=== PATIENT | male | born 1950 | race Caucasian/White ===

== ENCOUNTER → 2018-04-01 08:58 | Outpatient (CLI) | payer OTHER, SELFPAY ==
[2018-04-03 13:45] LABS: PSA Free % 25 % (calc) (> 25); PSA, Total 5.5 ng/mL (< 4.1)
== END ==
PROVIDERS: Family Provider Family Medicine; PCP Family Medicine; Visit Provider Family Medicine
DX: N40.0 Benign prostatic hyperplasia without lower urinary tract symptoms (principal)
CPT/HCPCS: 36415; 84153; 84154

== ENCOUNTER → 2018-09-24 13:31 | Outpatient (CLI) | payer OTHER, SELFPAY ==
[2018-09-24 13:53] LABS: Add Manual Diff / Slide Review NO; Basophils Percent Auto 0.9 % (0-2); Eosinophils Percent Auto 7.1 % (2-4); Hematocrit 42.8 % (41-53); Hemoglobin 14.2 g/dL (13.5-17.5); Lymphocytes Percent Auto 35.3 % (25-40); Mean Corpuscular HGB Conc 33.2 % (30-36); Mean Corpuscular Hemoglobin 27.9 PG (26-34); Mean Corpuscular Volume 84.1 fL (80-100); Monocytes Percent Auto 7.1 % (3-14); Neutrophils Absolute Auto 1800 /uL (1500-7000); Neutrophils Percent Auto 49.6 % (50-75); Platelet Count 127 X10^3/uL (150-400); Red Blood Cell Count 5.09 X10^6/uL (4.5-5.9); Red Cell Distribution Width 14.2 % (11.6-14.8); White Blood Cell Count 3.6 X10^3/uL (4.5-11.0)
[2018-09-24 15:02] LABS: Alanine Aminotransferase 31 IU/L (21-72); Albumin Globulin Ratio 1.7 (1.0-2.8); Alkaline Phosphatase 94 U/L (38-126); Aspartate Aminotransferase 19 IU/L (17-59); BUN Creatinine Ratio 27.5 (6-22); Bilirubin Total 0.3 mg/dL (0.2-1.3); Blood Urea Nitrogen 22 mg/dL (9-20); Calcium 9.5 mg/dL (8.4-10.2); Carbon Dioxide 24 mmol/L (22-32); Chloride 107 mmol/L (98-107); Cholesterol 133 mg/dL (140-199); Estimated Glomerular Filt Rate > 60.0 mL/min (>60); Globulin 2.4 g/dL (1.7-4.1); Glucose 91 mg/dL (80-110); HDL Cholesterol 47 mg/dL (40-60); HEMOLYSIS < 15 (0-50); LDL Cholesterol Calculated 58 mg/dL (<100); Potassium 4.3 mmol/L (3.4-5.1); Sodium 144 mmol/L (137-145); Total Protein 6.4 g/dL (6.3-8.2); Triglycerides 141 mg/dL (35-150)
[2018-09-24 15:33] LABS: Prostate Specific Antigen Scrn 4.51 ng/mL (0.1-4.0)
[2018-09-24 16:00] LABS: Thyroid Stimulating Hormone 2.01 uIU/mL (0.47-4.68)
== END ==
PROVIDERS: PCP Family Medicine; Visit Provider Family Medicine
DX: E03.9 Hypothyroidism, unspecified (principal); E66.9 Obesity, unspecified; E78.5 Hyperlipidemia, unspecified; I10 Essential (primary) hypertension; Z12.5 Encounter for screening for malignant neoplasm of prostate
CPT/HCPCS: 36415; 80053; 80061; 84443; 85025; G0103

== ENCOUNTER → 2018-11-15 14:12 | Outpatient (CLI) | payer OTHER, SELFPAY ==
[2018-11-19 15:43] LABS: PSA Free % 28 % (calc) (> 25)
== END ==
PROVIDERS: PCP Family Medicine; Visit Provider Family Medicine
DX: R97.20 Elevated prostate specific antigen [PSA] (principal)
CPT/HCPCS: 36415; 84153; 84154

== ENCOUNTER → 2019-01-29 10:33 | Outpatient (CLI) | payer OTHER, SELFPAY ==
--- NOTE | 2019-01-29 10:36 | DI.US.S_ITS ---
PROCEDURE: US SCROTUM INDICATIONS: RIGHT TESTICULAR SWELLING AND PAIN TECHNIQUE: Real-time scanning was performed of the scrotum and testicles, with image documentation. Color and pulse Doppler interrogation was performed of both testicles. COMPARISON: None. FINDINGS: Right: Testicle is normal in size at 2.2 x 3.6 x 4.7 cm, and homogenous in echotexture. Epididymis is normal in overall size and morphology. Small hydrocele and no varicoceles. Overlying scrotal skin is normal in thickness. Left: Testicle is normal in size at 2.4 x 3.4 x 4.6 cm, and homogeneous in echotexture. Epididymis is normal in overall size and morphology. Small hydrocele and no varicoceles. Overlying scrotal skin is normal in thickness. Note is made of several microcalcifications within the testicular parenchyma as an incidental finding. Doppler: Color and pulse Doppler demonstrate normal and symmetric arterial flow in both testicles. IMPRESSION: Bilateral small hydroceles, normal-appearing testicular parenchyma. No varicoceles are seen, no hyperemia is present involving the testicular parenchyma or epididymis bilaterally. Note is made of several small scattered microcalcifications of the left testis. Dictated by: Hardeep Pillai M.D. on 01/29/2019 at 11:45 Approved by: Hardeep Pillai M.D. on 01/29/2019 at 11:57
== END ==
PROVIDERS: PCP Family Medicine; Visit Provider Nurse Practitioner
DX: N50.89 Other specified disorders of the male genital organs (principal); N43.3 Hydrocele, unspecified
CPT/HCPCS: 76870

== ENCOUNTER 2019-06-06 07:53 | Day surgery (SDC) | payer OTHER, SELFPAY ==
[2019-06-06 08:10] VITALS: BP 142/93; PULSE 87; RESP 16; TEMP 36.2; O2SAT 97
[2019-06-06 08:19] VITALS: BMI 34.2
[2019-06-06] MEDS: SODIUM CHLORIDE 0.9% 1,000 ML 200 ML IV (08:30)
--- NOTE | 2019-06-06 09:00 | P.HP_ITS ---
History of Present Illness History of Present Illness Date Patient Seen: 06/06/19 Time Patient Seen: 09:00 Chief complaint: [id number] Narrative: 69-year-old man 10 years status post most recent colonoscopy No family history of colon cancer, rectal cancers, no family history of colon polyps Generally feeling well Of note he thinks he may have a history of colon polyps but is quite certain was told to return in 10 years Patient History Social History household members: spouse Smoking Status: Former smoker Family & Social History Social History: household members spouse Tobacco & Substance use: Smoking Status Former smoker Meds Home Medications and Allergies Home Medications Medication Instructions Recorded Confirmed Type CA PANTOTHENATE/FOLIC ACID/VIT 1 tab PO DAILY #0 07/25/11 06/06/19 History (MULTIVITAMIN) clopidogrel 75 mg tablet 75 mg PO QDAY #90 tab 12/31/18 06/06/19 Rx fluoxetine 20 mg capsule 20 mg PO QDAY #90 cap 12/31/18 06/06/19 Rx lisinopril 10 mg tablet 10 mg PO QDAY #90 tab 12/31/18 06/06/19 Rx simvastatin 80 mg tablet 80 mg PO QDAY #90 tab 12/31/18 06/06/19 Rx tamsulosin 0.4 mg capsule 0.4 mg PO HS #90 cap 12/31/18 06/06/19 Rx trazodone 50 mg tablet 50 mg PO HS #90 tab 12/31/18 06/06/19 Rx aspirin 81 mg tablet,delayed 81 mg PO DAILY #100 tab 01/01/19 06/06/19 Rx release finasteride 5 mg tablet 5 mg PO DAILY 01/27/19 06/06/19 History Allergies Allergy/AdvReac Type Severity Reaction Status Date / Time morphine AdvReac Mild INCREASED Verified 06/06/19 08:34 BP, TACHYCARDIA Review of Systems Constitutional Constitutional: Denies fever(s) Eyes Eyes: Denies bulging eyes ENT Ears, Nose, Mouth, and Throat: No lip swelling Cardiovascular Cardiovascular: Denies generalize swelling Respiratory Respiratory: Denies stridor Gastrointestinal Gastrointestinal: Denies coffee ground emesis Musculoskeletal Musculoskeletal: Denies loss of height Integumentary/Breasts Skin/Breast: Denies wounds Neurologic Neurologic: Denies abnormal speech and Denies confusion Psychiatric Psychiatric: Denies confusion and Denies tactile hallucinations Endocrine Endocrine: Denies deepening of the voice Hematologic/Lymphatic Hematologic/Lymphatic: Denies lymphadenopathy Allergic/Immunologic Allergic/Immunologic: Denies lip swelling Exam Vital Signs (past 8 hours): - 06/06/19 08:10 Temperature 97.2 F L Pulse Rate 87 Respiratory Rate 16 Blood Pressure 142/93 H Pulse Oximetry 97 Oxygen Delivery Method Room Air Const General: cooperative and healthy appearing Orientation: alert [facility] Head: normal to inspection Nose: nares normal Mouth: oral mucosae normal and lip normal Eyes Eyelids: eyelids normal Conjunctivae: conjunctivae normal Sclera: sclerae normal Neck Neck: supple and other (No thyromegally) Chest Chest: other (LCTAB , regular respiratory effort) Cardio Rhythm: regular rhythm Heart Sounds: S1 normal, S2 normal, no gallops, no murmurs and no rubs GI Other: Soft nontender nondistended Skin General: no rashes or lesions noted Neuro General: alert and awake Psych Appearance: grossly normal Affect: normal affect Assessment & Plan Assessment & Plan narrative: 69-year-old man due for screening colonoscopy Risks and benefits of procedure discussed, risks including bleeding, , perforation, missed lesion, hypoxia all discussed Patient ready to proceed All questions answered
[2019-06-06] MEDS: MIDAZOLAM 5 MG/5 ML VIAL IV (09:22)
[2019-06-06] MEDS: fentaNYL 250 MCG/5 ML INJ IV (09:22)
--- NOTE | 2019-06-06 09:41 | PM.OP.ENDO ---
Operative Date/Time/Diagnoses Date of procedure: 06/06/19 Time of procedure: 09:41 Pre-op diagnosis: Colorectal cancer screening Post-op diagnosis: other Procedure & Clinicians Study performed: Diagnostic colonoscopy-complete Same procedure as scheduled: Yes Indications: 69-year-old man who reports 10 year interval between now and last colonoscopy, per records last colonoscopy without colon polyps Surgeon: Flavio Buckley Procedure Notes SCOAP/Timeout: Completed Procedure in detail: Patient was brought to the endoscopy suite, a time-out was completed. He was sedated over the entire course of the procedure with 7 mg of midazolam and 200 mg of fentanyl. A digital rectal exam was performed without abnormality. 160 cm colonoscope was introduced through the anus and negotiated through the folds of the rectum and anus until the cecum was encountered. The cecum was verified via an appendiceal orifice as well as a prominent ileocecal valve. The cecum contained an above-average amount of debris which was sequentially irrigated and suctioned to clear the mucosal surfaces. The scope was then slowly withdrawn overall the prep was adequate though there were several areas within the colon that did require multiple irrigations and suctioning to be able to adequately visualize. There was mild intermittent diverticuli identified in the transverse colon as well as the right colon. Severe diverticulosis within the sigmoid colon. At the level of the distal rectum the scope was retroflexed. No additional mucosal lesions were seen No polyp After multiple irrigations -prep/mucosal inspection was adequate Scope withdrawal time: 12 Sedation minutes: 33 Specimen(s): none sent Complications: none Impression: Diverticular disease -right colon, transverse colon -moderate Severe diverticular disease of the sigmoid colon Post-procedure Recommendations: Colonscopy in 10 years Plan for aftercare: PACU then home Follow up: as needed Disposition: PACU
[2019-06-06 09:45] VITALS: BP 122/78; PULSE 67; RESP 16; TEMP 36; O2SAT 98
--- NOTE | 2019-06-06 09:50 | SUR.PHASEI ---
0945 To pacu, states that he is having the best rest and this is why he like to come here. Denies pain, belly soft. returned to sleep. Very relaxed and content
[2019-06-06 09:51] VITALS: BP 107/72; PULSE 67; RESP 14; O2SAT 97
[2019-06-06 09:56] VITALS: BP 106/73; PULSE 64; RESP 16; O2SAT 95
[2019-06-06 10:00] VITALS: BP 106/68; PULSE 72; RESP 13; O2SAT 97
--- NOTE | 2019-06-06 10:00 | SUR.PHASEI ---
Dr. Buckley here and spoke to patient. Pt. arouses easily to voice. HOB elevated, water given. Denies discomfort or light-headedness. States, In fact I feel like a million bucks.
[2019-06-06 10:14] VITALS: BP 117/77; PULSE 69; RESP 18; TEMP 36.5; O2SAT 98
--- NOTE | 2019-06-06 10:16 | SUR.PHASEII ---
Discharge note: Patient AA/O x 3. VSS, O2 sat WNL, No complaints of pain. Discharge instructions reviewed with patient and spouse with good understanding. Stable for discharge to home.
== END 2019-06-06 10:40 | disposition home or self-care (01) ==
LOC: ENDO 07:54
PROVIDERS: PCP Family Medicine; Visit Provider Surgery
PROC: 0DJD8ZZ Inspection of Lower Intestinal Tract, Via Natural or Artificial Opening Endoscopic (ICD-10-PCS; CPT 45378; principal; 2019-06-06 08:45)
DX: Z12.11 Encounter for screening for malignant neoplasm of colon (principal); K57.30 Diverticulosis of large intestine without perforation or abscess without bleeding
CPT/HCPCS: G0121; 99152; 99153; J2250; J3010

== ENCOUNTER → 2020-04-01 12:41 | Outpatient (CLI) | payer OTHER, SELFPAY ==
[2020-04-01 13:53] LABS: Add Manual Diff / Slide Review NO; Basophils Absolute Auto 0 /uL (0-100); Basophils Percent Auto 0.5 % (0-2); Eosinophils Absolute Auto 200 /uL (0-450); Eosinophils Percent Auto 4.8 % (2-4); Hematocrit 42.2 % (41-53); Hemoglobin 14.3 g/dL (13.5-17.5); Lymphocytes Absolute Auto 1400 /uL (1100-4500); Lymphocytes Percent Auto 35.9 % (25-40); Mean Corpuscular HGB Conc 33.9 % (30-36); Mean Corpuscular Hemoglobin 27.6 PG (26-34); Mean Corpuscular Volume 81.5 fL (80-100); Monocytes Absolute Auto 300 /uL (0-900); Monocytes Percent Auto 7.2 % (3-14); Neutrophils Absolute Auto 2000 /uL (1500-7000); Neutrophils Percent Auto 51.6 % (50-75); Platelet Count 138 X10^3/uL (150-400); Red Blood Cell Count 5.18 X10^6/uL (4.5-5.9); White Blood Cell Count 3.9 X10^3/uL (4.5-11.0)
[2020-04-01 14:01] LABS: Alanine Aminotransferase 25 IU/L (<50); Albumin 4.2 g/dL (3.5-5.0); Albumin Globulin Ratio 1.6 (1.0-2.8); Alkaline Phosphatase 103 U/L (38-126); Aspartate Aminotransferase 29 IU/L (17-59); Bilirubin Total 0.7 mg/dL (0.2-1.3); Blood Urea Nitrogen 15 mg/dL (9-20); Calcium 9.6 mg/dL (8.4-10.2); Carbon Dioxide 25 mmol/L (22-32); Chloride 107 mmol/L (98-107); Cholesterol 160 mg/dL (140-199); Estimated Glomerular Filt Rate > 60.0 mL/min (>60); Globulin 2.6 g/dL (1.7-4.1); Glucose 101 mg/dL (80-110); HDL Cholesterol 37 mg/dL (40-60); HEMOLYSIS < 15 (0-50); LDL Cholesterol Calculated 93 mg/dL (<100); Potassium 4.1 mmol/L (3.4-5.1); Sodium 138 mmol/L (137-145); Total Protein 6.8 g/dL (6.3-8.2); Triglycerides 150 mg/dL (35-150)
[2020-04-01 14:31] LABS: Prostate Specific Antigen Scrn 1.67 ng/mL (0.1-4.0)
== END ==
PROVIDERS: PCP Family Medicine; Referring Provider Family Medicine; Visit Provider Family Medicine
DX: Z12.5 Encounter for screening for malignant neoplasm of prostate (principal); I25.10 Atherosclerotic heart disease of native coronary artery without angina pectoris; E78.5 Hyperlipidemia, unspecified; R00.1 Bradycardia, unspecified; I10 Essential (primary) hypertension
CPT/HCPCS: 36415; 80053; 80061; 85025; G0103

== ENCOUNTER → 2020-07-20 15:41 | Outpatient (CLI) | payer OTHER, SELFPAY ==
[2020-07-20 19:24] LABS: Bacteria Urine None Seen; WBC Urine None Seen (0-5/HPF)
[2020-07-20 19:46] LABS: Appearance Urine UA CLEAR; Bilirubin Urine UA NEGATIVE (NEGATIVE); Color Urine UA YELLOW; Glucose Urine UA NEGATIVE (Negative); Ketones Urine UA NEGATIVE (NEGATIVE); Leukocyte Esterase Urine UA NEGATIVE (NEGATIVE); Nitrite Urine UA NEGATIVE (Negative); Occult Blood Urine UA TRACE-LYSED (Negative); Protein Urine UA NEGATIVE (Negative); Urobilinogen Urine UA 0.2 E.U./dL (0.2)
[2020-07-20 19:57] LABS: Culture Indicated Urine Cult Not Indicated; RBC Urine 0-1/HPF (0-5/HPF)
== END ==
PROVIDERS: PCP Family Medicine; Visit Provider Nurse Practitioner Family
DX: R30.0 Dysuria (principal)
CPT/HCPCS: 81001

== ENCOUNTER → 2020-07-27 10:32 | Outpatient (CLI) | payer OTHER, SELFPAY ==
--- NOTE | 2020-07-27 10:32 | DI.US.S_ITS ---
PROCEDURE: US RENAL COMPLETE INDICATIONS: HEMATURIA. ONE EPISODE TECHNIQUE: Real-time scanning was performed of the kidneys and bladder, with image documentation. COMPARISON: None. FINDINGS: Kidneys: Kidneys are normal in size. Right kidney measures 13.4 cm long; left kidney measures 12.0 cm long. Right renal cortical thickness is 1.2 cm; left renal cortical thickness is 1.6 cm. Renal cortical echotexture is normal. No hydronephrosis or nephrolithiasis. No suspicious solid mass lesions. Note is made of several scattered renal cysts, the largest of which is located at the lower pole of the right kidney measuring up to 3.4 x 3.4 x 4.0 cm containing a small amount of internal debris. Bladder: Pre-void bladder volume is 312 mL. Post-void residual is 40 mL. Pre-void images demonstrate no intraluminal masses or stones. On pre-void images, neither ureteral jets are noted with color Doppler interrogation. (Of note, ureteral jets may not be detectable in up to 25% of cases due to insufficient differences in specific gravity between ureteral and bladder urine). Miscellaneous: No free pelvic fluid. IMPRESSION: Several scattered renal cortical cysts are present. No hydronephrosis or nephrolithiasis or renal mass lesion is found. Dictated by: Hardeep Pillai M.D. on 07/27/2020 at 12:35 Approved by: Hardeep Pillai M.D. on 07/27/2020 at 12:37
== END ==
PROVIDERS: PCP Family Medicine; Referring Provider Nurse Practitioner Family; Visit Provider Nurse Practitioner Family
DX: R31.9 Hematuria, unspecified (principal); N28.1 Cyst of kidney, acquired
CPT/HCPCS: 76770

== ENCOUNTER 2020-09-07 15:07 | Emergency (ER) | payer OTHER, SELFPAY ==
[2020-09-07] VITALS (34 sets, daily range): BP systolic 113–140; BP diastolic 55–103; PULSE 53–79; RESP 10–21; TEMP 36.6; O2SAT 91–98; BMI 34.8
--- NOTE | 2020-09-07 15:21 | DI.RAD.S_ITS ---
PROCEDURE: XR CHEST 1V INDICATIONS: chest pain TECHNIQUE: One view of the chest was acquired. COMPARISON: [facility], CHEST 1 VIEW, 04/29/2015, 13:55. [facility], CHEST 2 VIEW, 08/13/2007, 16:49. FINDINGS: Surgical changes and devices: None. Lungs and pleura: Lungs are clear except for a mild chronic interstitial prominence. No pleural effusions or pneumothorax. Mediastinum: Mediastinal contours appear normal. Heart size is normal. Bones and chest wall: No suspicious bony lesions. There has been prior acromioplasty on the right with widening of the AC joint interspace. Overlying soft tissues appear unremarkable. IMPRESSION: No acute disease, source of new chest pain is not found. Old acromioplasty right shoulder. Chronic mild interstitial prominence. Dictated by: Hardeep Pillai M.D. on 09/07/2020 at 15:51 Approved by: Hardeep Pillai M.D. on 09/07/2020 at 15:52
[2020-09-07 15:44] LABS: Add Manual Diff / Slide Review NO; Basophils Absolute Auto 0 /uL (0-100); Basophils Percent Auto 0.5 % (0-2); Eosinophils Absolute Auto 100 /uL (0-450); Eosinophils Percent Auto 3.6 % (2-4); Hematocrit 43.5 % (41-53); Hemoglobin 14.5 g/dL (13.5-17.5); Lymphocytes Absolute Auto 1300 /uL (1100-4500); Lymphocytes Percent Auto 34.6 % (25-40); Mean Corpuscular HGB Conc 33.4 % (30-36); Mean Corpuscular Hemoglobin 27.4 PG (26-34); Mean Corpuscular Volume 81.9 fL (80-100); Monocytes Absolute Auto 200 /uL (0-900); Monocytes Percent Auto 5.2 % (3-14); Neutrophils Absolute Auto 2100 /uL (1500-7000); Neutrophils Percent Auto 56.1 % (50-75); Platelet Count 149 X10^3/uL (150-400); Red Blood Cell Count 5.32 X10^6/uL (4.5-5.9); White Blood Cell Count 3.7 X10^3/uL (4.5-11.0)
[2020-09-07 15:51] LABS: Alanine Aminotransferase 26 IU/L (<50); Albumin 4.5 g/dL (3.5-5.0); Albumin Globulin Ratio 1.6 (1.0-2.8); Alkaline Phosphatase 107 U/L (38-126); Aspartate Aminotransferase 28 IU/L (17-59); BUN Creatinine Ratio 18.3 (6-22); Bilirubin Total 0.7 mg/dL (0.2-1.3); Blood Urea Nitrogen 15 mg/dL (9-20); Calcium 9.5 mg/dL (8.4-10.2); Carbon Dioxide 25 mmol/L (22-32); Chloride 105 mmol/L (98-107); Creatine Kinase 55 U/L (55-170); Estimated Glomerular Filt Rate > 60.0 mL/min (>60); Globulin 2.8 g/dL (1.7-4.1); Glucose 113 mg/dL (80-110); HEMOLYSIS < 15 (0-50); Lipase 90 U/L (23-300); Potassium 3.9 mmol/L (3.4-5.1); Sodium 137 mmol/L (137-145); Total Protein 7.3 g/dL (6.3-8.2)
--- NOTE | 2020-09-07 15:59 | ED.CHESTPAIN ---
HPI - Chest Pain <FRANKO Becker - Last Filed: 09/07/20 20:33> General Chief Complaint: Chest Pain Stated Complaint: CHEST PAIN Time Seen by Provider: 09/07/20 15:43 Source: patient Mode of arrival: Wheelchair Limitations: no limitations History of Present Illness HPI narrative: 70yo male presents with a history of hypertension, hyperlipidemia, CAD, a stent in his aorta, and has been previously told in he has ?clogged vessels in his heart that cannot be fixed, presents to the ED for intermittent chest pressure on exertion for the past 5 days. Patient states it occurs when he is walking, the pressure significantly decreases when he stops. When this 1st happened he developed nausea and had an episode of vomiting. Patient states it is the worst today, he walked about 20 ft and develops 7/10 chest pressure and vomited. Soon as he stops, he states pain significantly decreased to a 1/10 were remains now. Patient reports he takes Plavix and 81 mg of aspirin. He sees Dr. Christopher for cardiology. Patient denies any other symptoms such as fevers, chills, nausea at this time, shortness of breath, abdominal pain, or any other concerns. Related Data Home Medications Medication Instructions Recorded Confirmed multivitamin 1 tab PO DAILY #0 07/25/11 09/07/20 finasteride 5 mg tablet 5 mg PO DAILY 01/27/19 09/07/20 [id number] 1 tab PO DAILY 09/07/20 09/07/20 [Triple Flex Mood, Joint CALLIE-e] Previous Rx's Medication Instructions Recorded aspirin 81 mg tablet,delayed 81 mg PO DAILY #100 tab 01/01/19 release clopidogrel 75 mg tablet 75 mg PO QDAY #90 tab 01/07/20 lisinopril 10 mg tablet 10 mg PO QDAY #90 tab 01/07/20 simvastatin 80 mg tablet 80 mg PO QDAY #90 tab 01/07/20 trazodone 50 mg tablet 50 mg PO HS #90 tab 01/07/20 fluoxetine 20 mg capsule 20 mg PO QDAY #90 cap 01/09/20 tamsulosin 0.4 mg capsule 0.4 mg PO HS #90 cap 04/08/20 Allergies Allergy/AdvReac Type Severity Reaction Status Date / Time morphine AdvReac Mild INCREASED Verified 09/07/20 15:19 BP, TACHYCARDIA Review of Systems <FRANKO Becker - Last Filed: 09/07/20 20:33> Review of Systems Narrative: REVIEW OF SYSTEMS: GENERAL: Denies fever or chills. HENT: No head trauma. . CARDIOVASCULAR: Reports chest pressure with exertion, see HPI. RESPIRATORY: No shortness of breath or cough. GASTROINTESTINAL: No nausea, vomiting, diarrhea, or constipation. GENITOURINARY: No flank pain or dysuria. MUSCULOSKELETAL: No pain. INTEGUMENTARY: No rash. NEURO: No numbness or tingling. Patient History <FRANKO Becker - Last Filed: 09/07/20 20:33> Medical History Hematuria (07/19/20) Family History Father Hypertension Heart disease Family/Other Alcohol abuse Substance abuse Social History household members: spouse Smoking Status: Former smoker Smoking Status: Former smoker alcohol intake frequency: holidays/special occasions only Substance Use Type: does not use Exam <FRANKO Becker - Last Filed: 09/07/20 20:33> Initial Vital Signs Initial Vital Signs: Vital Signs Temperature 97.9 F 09/07/20 15:19 Pulse Rate 79 09/07/20 15:19 Respiratory Rate 15 09/07/20 15:19 Blood Pressure 135/103 H 09/07/20 15:19 Pulse Oximetry 98 09/07/20 15:19 PHYSICAL EXAMINATION: GENERAL: 70-year-old obese male, awake and alert, pleasant, answers questions appropriately. HENT: Normocephalic, atraumatic. Ear canals patent. Oral mucosa is pink and moist. EYES: Conjunctiva pink, sclera white, no periorbital swelling. CHEST: Normal to inspection and without deformities. CARDIOVASCULAR: S1 and S2 sounds normal. Regular rate and rhythm, no murmurs, clicks, or bruits. No pedal edema. RESPIRATORY: Normal respiratory rate, trachea midline, airway patent. No stridor, nasal flaring or accessory muscle use. Lungs are clear in all ellis without wheeze, rhonchi, or crackles. GASTROINTESTINAL: Bowel sounds normoactive. Abdomen is soft and non-tender. No organomegaly. MUSCULOSKELETAL: Normal gait and coordination. Equal tone and mass bilaterally. EXTREMITIES: CMS intact. Moves all extremities. SKIN: Warm, dry, soft, appropriate color for ethnicity. NEURO: Alert and Oriented X 3. Good coordination. <Flavio Montgomery DO - Last Filed: 09/07/20 21:19> Initial Vital Signs Initial Vital Signs: Vital Signs Temperature 97.9 F 09/07/20 15:19 Pulse Rate 79 09/07/20 15:19 Respiratory Rate 15 09/07/20 15:19 Blood Pressure 135/103 H 09/07/20 15:19 Pulse Oximetry 98 09/07/20 15:19 Scores <FRANKO Becker - Last Filed: 09/07/20 20:33> HEART Score Heart Score history: Highly Suspicious Heart Score EKG: Normal Heart Score Age: > or = 65 years old Heart Score risk factors: > 3 risk factors or hx of atherosclerotic disease Heart Score troponin: 1-3 times normal limit Heart Score Total: 7 Course <FRANKO Becker - Last Filed: 09/07/20 20:33> Course Course Narrative: 1617: Patient given ASA and 2 SL nitro which completely resolved his chest pressure. 1818: I spoke with Dr. Epps from [facility] cardiology, discussed patient's history, current symptoms, test, on test results. Discussed heart score of 7. He recommended IV heparin, and transfer to admission to the hospitalist, and p.o., continue with statins. Discussed that patient is chronically on Plavix. 182: Discussed transfer with patient, patient consented. Discussed benefits and wrist to heparin, patient consented to heparin. 1938: I spoke with hospitalist at [facility], accepts for admission. Orders Ordered: ED Orders 09/07/20 15:21 XR chest 1V Stat EKG-12 Lead Stat 09/07/20 15:28 Complete Blood Count AUTO DIFF Stat Comprehensive Metabolic Panel Stat Lipase Stat Partial Thromboplastin Time Stat Prothrombin Time INR Stat Troponin & CK Cardiac Panel Stat 09/07/20 16:30 COVID19 Stat 09/07/20 16:54 CT angio chest abdomen pelvis Stat 09/07/20 17:33 Troponin I Stat Sodium Chloride (Normal Saline 0.9%) 1,000 mls @ 150 mls/hr IV CONT MEREDITH Last Admin: 09/07/20 17:18 Dose: 150 mls/hr Documented by: WILLIE Heparin Sodium/Dextrose (Heparin Drip) 25,000 unit in 500 mls @ 20 mls/hr IV CONT MEREDITH; Protocol Last Admin: 09/07/20 19:07 Dose: 1,000 units/hr, 20 mls/hr Documented by: WILLIE Nitroglycerin (Nitroglycerin 0.4 Mg Sl Tab) 0.4 mg SL [id number] PRN PRN Reason: Chest Pain Last Admin: 09/07/20 16:17 Dose: 0.4 mg Documented by: Admin: 09/07/20 16:03 Dose: 0.4 mg Documented by: WILLIE Discontinued Medications Acetaminophen (Acetaminophen 325 Mg Tablet) 975 mg PO NOW ONE Stop: 09/07/20 15:53 Last Admin: 09/07/20 16:03 Dose: 975 mg Documented by: WILLIE Aspirin (Aspirin 81 Mg Chew Tab) 243 mg PO NOW ONE Stop: 09/07/20 15:53 Last Admin: 09/07/20 16:03 Dose: 243 mg Documented by: WILLIE Heparin Sodium (Porcine) (Heparin 5,000 Unit/Ml Vial) 5,000 unit IV NOW ONE Stop: 09/07/20 18:32 Last Admin: 09/07/20 19:07 Dose: 5,000 unit Documented by: WILLIE Reevaluation(s) Reevaluation #1: Patient staffed with Dr. Joshi discussed test, test results, plan of care. Vital Signs Vital signs: Vital Signs - 8 hr 09/07/20 15:19 09/07/20 15:27 09/07/20 15:41 Temperature 97.9 F Pulse Rate 79 66 67 Respiratory Rate 15 Blood Pressure 135/103 H Pulse Oximetry 98 96 98 09/07/20 15:55 09/07/20 16:00 09/07/20 16:03 Temperature Pulse Rate 67 67 65 Respiratory Rate 13 13 Blood Pressure 126/75 133/81 133/81 Pulse Oximetry 97 96 09/07/20 16:09 09/07/20 16:12 09/07/20 16:15 Temperature Pulse Rate 79 74 71 Respiratory Rate 10 L 13 Blood Pressure 121/65 127/67 122/66 Pulse Oximetry 91 94 96 09/07/20 16:17 09/07/20 16:18 09/07/20 16:22 Temperature Pulse Rate 68 69 73 Respiratory Rate 15 11 L Blood Pressure 122/66 126/71 117/59 L Pulse Oximetry 97 96 09/07/20 16:24 09/07/20 16:27 09/07/20 16:30 Temperature Pulse Rate 75 79 72 Respiratory Rate 13 Blood Pressure 113/64 117/68 121/59 L Pulse Oximetry 96 94 94 09/07/20 16:33 09/07/20 16:36 09/07/20 17:03 Temperature Pulse Rate 70 66 64 Respiratory Rate Blood Pressure 114/55 L 115/56 L 118/65 Pulse Oximetry 97 96 98 09/07/20 17:30 09/07/20 18:00 09/07/20 18:30 Temperature Pulse Rate 56 L 62 59 L Respiratory Rate 14 11 L Blood Pressure Pulse Oximetry 98 98 98 09/07/20 19:00 09/07/20 19:30 Temperature Pulse Rate 58 L 60 Respiratory Rate 13 16 Blood Pressure Pulse Oximetry 98 98 <Flavio Montgomery DO - Last Filed: 09/07/20 21:19> Orders Ordered: ED Orders 09/07/20 15:21 XR chest 1V Stat EKG-12 Lead Stat 09/07/20 15:28 Complete Blood Count AUTO DIFF Stat Comprehensive Metabolic Panel Stat Lipase Stat Partial Thromboplastin Time Stat Prothrombin Time INR Stat Troponin & CK Cardiac Panel Stat 09/07/20 16:30 COVID19 Stat 09/07/20 16:54 CT angio chest abdomen pelvis Stat 09/07/20 17:33 Troponin I Stat Sodium Chloride (Normal Saline 0.9%) 1,000 mls @ 150 mls/hr IV CONT MEREDITH Last Admin: 09/07/20 17:18 Dose: 150 mls/hr Documented by: WILLIE Heparin Sodium/Dextrose (Heparin Drip) 25,000 unit in 500 mls @ 20 mls/hr IV CONT MEREDITH; Protocol Last Admin: 09/07/20 19:07 Dose: 1,000 units/hr, 20 mls/hr Documented by: WILLIE Nitroglycerin (Nitroglycerin 0.4 Mg Sl Tab) 0.4 mg SL [id number] PRN PRN Reason: Chest Pain Last Admin: 09/07/20 16:17 Dose: 0.4 mg Documented by: Admin: 09/07/20 16:03 Dose: 0.4 mg Documented by: WILLIE Discontinued Medications Acetaminophen (Acetaminophen 325 Mg Tablet) 975 mg PO NOW ONE Stop: 09/07/20 15:53 Last Admin: 09/07/20 16:03 Dose: 975 mg Documented by: WILLIE Aspirin (Aspirin 81 Mg Chew Tab) 243 mg PO NOW ONE Stop: 09/07/20 15:53 Last Admin: 09/07/20 16:03 Dose: 243 mg Documented by: WILLIE Heparin Sodium (Porcine) (Heparin 5,000 Unit/Ml Vial) 5,000 unit IV NOW ONE Stop: 09/07/20 18:32 Last Admin: 09/07/20 19:07 Dose: 5,000 unit Documented by: WILLIE Vital Signs Vital signs: Vital Signs - 8 hr 09/07/20 15:19 09/07/20 15:27 09/07/20 15:41 Temperature 97.9 F Pulse Rate 79 66 67 Respiratory Rate 15 Blood Pressure 135/103 H Pulse Oximetry 98 96 98 09/07/20 15:55 09/07/20 16:00 09/07/20 16:03 Temperature Pulse Rate 67 67 65 Respiratory Rate 13 13 Blood Pressure 126/75 133/81 133/81 Pulse Oximetry 97 96 09/07/20 16:09 09/07/20 16:12 09/07/20 16:15 Temperature Pulse Rate 79 74 71 Respiratory Rate 10 L 13 Blood Pressure 121/65 127/67 122/66 Pulse Oximetry 91 94 96 09/07/20 16:17 09/07/20 16:18 09/07/20 16:22 Temperature Pulse Rate 68 69 73 Respiratory Rate 15 11 L Blood Pressure 122/66 126/71 117/59 L Pulse Oximetry 97 96 09/07/20 16:24 09/07/20 16:27 09/07/20 16:30 Temperature Pulse Rate 75 79 72 Respiratory Rate 13 Blood Pressure 113/64 117/68 121/59 L Pulse Oximetry 96 94 94 09/07/20 16:33 09/07/20 16:36 09/07/20 17:03 Temperature Pulse Rate 70 66 64 Respiratory Rate Blood Pressure 114/55 L 115/56 L 118/65 Pulse Oximetry 97 96 98 09/07/20 17:30 09/07/20 18:00 09/07/20 18:30 Temperature Pulse Rate 56 L 62 59 L Respiratory Rate 14 11 L Blood Pressure Pulse Oximetry 98 98 98 09/07/20 19:00 09/07/20 19:30 Temperature Pulse Rate 58 L 60 Respiratory Rate 13 16 Blood Pressure Pulse Oximetry 98 98 MDM - Chest Pain <Brenda FRANKO Truong - Last Filed: 09/07/20 20:33> Medical Records Data Attestation: I reviewed the patient's medical records. Lab Data Attestation: I reviewed the patient's lab results. Result diagrams: 09/07/20 15:28 09/07/20 15:28 Labs: Lab Results 09/07/20 09/07/20 09/07/20 Range/Units 15:28 15:28 15:28 WBC 3.7 L (4.5-11.0) X10^3/uL RBC 5.32 (4.5-5.9) X10^6/uL Hgb 14.5 (13.5-17.5) g/dL Hct 43.5 (41-53) % MCV 81.9 (80-100) fL MCH 27.4 (26-34) PG MCHC 33.4 (30-36) % RDW 14.0 (11.6-14.8) % Plt Count 149 L (150-400) X10^3/uL Neut % (Auto) 56.1 (50-75) % Lymph % (Auto) 34.6 (25-40) % Otoe % (Auto) 5.2 (3-14) % Eos % (Auto) 3.6 (2-4) % Baso % (Auto) 0.5 (0-2) % Neut # (Auto) 2100 (1691-8929) /uL Lymph # (Auto) 1300 (8997-7835) /uL Otoe # (Auto) 200 (0-900) /uL Eos # (Auto) 100 (0-450) /uL Baso # (Auto) 0 (0-100) /uL PT 12.6 (10.1-12.7) SECONDS INR 1.1 (0.9-1.3) APTT 36 (26.4-36.2) SECONDS Sodium 137 (137-145) mmol/L Potassium 3.9 (3.4-5.1) mmol/L Chloride 105 (98-107) mmol/L Carbon Dioxide 25 (22-32) mmol/L BUN 15 (9-20) mg/dL Creatinine 0.82 (0.66-1.25) mg/dL Estimated GFR > 60.0 (>60) mL/min BUN/Creatinine Ratio 18.3 (6-22) Glucose 113 H (80-110) mg/dL Calcium 9.5 (8.4-10.2) mg/dL Total Bilirubin 0.7 (0.2-1.3) mg/dL AST 28 (17-59) IU/L ALT 26 (<50) IU/L Alkaline Phosphatase 107 (38-126) U/L Total Creatine Kinase 55 (55-170) U/L CK-MB (CK-2) TNP CK-MB (CK-2) Rel Index TNP Troponin I < 0.012 (0.01-0.034) ng/mL Total Protein 7.3 (6.3-8.2) g/dL Albumin 4.5 (3.5-5.0) g/dL Globulin 2.8 (1.7-4.1) g/dL Albumin/Globulin Ratio 1.6 (1.0-2.8) Lipase 90 (23-300) U/L COVID-19 PCR (Negative) 09/07/20 09/07/20 Range/Units 16:30 17:33 WBC (4.5-11.0) X10^3/uL RBC (4.5-5.9) X10^6/uL Hgb (13.5-17.5) g/dL Hct (41-53) % MCV (80-100) fL MCH (26-34) PG MCHC (30-36) % RDW (11.6-14.8) % Plt Count (150-400) X10^3/uL Neut % (Auto) (50-75) % Lymph % (Auto) (25-40) % Otoe % (Auto) (3-14) % Eos % (Auto) (2-4) % Baso % (Auto) (0-2) % Neut # (Auto) (7519-6785) /uL Lymph # (Auto) (9112-4975) /uL Otoe # (Auto) (0-900) /uL Eos # (Auto) (0-450) /uL Baso # (Auto) (0-100) /uL PT (10.1-12.7) SECONDS INR (0.9-1.3) APTT (26.4-36.2) SECONDS Sodium (137-145) mmol/L Potassium (3.4-5.1) mmol/L Chloride (98-107) mmol/L Carbon Dioxide (22-32) mmol/L BUN (9-20) mg/dL Creatinine (0.66-1.25) mg/dL Estimated GFR (>60) mL/min BUN/Creatinine Ratio (6-22) Glucose (80-110) mg/dL Calcium (8.4-10.2) mg/dL Total Bilirubin (0.2-1.3) mg/dL AST (17-59) IU/L ALT (<50) IU/L Alkaline Phosphatase (38-126) U/L Total Creatine Kinase (55-170) U/L CK-MB (CK-2) CK-MB (CK-2) Rel Index Troponin I 0.051 H (0.01-0.034) ng/mL Total Protein (6.3-8.2) g/dL Albumin (3.5-5.0) g/dL Globulin (1.7-4.1) g/dL Albumin/Globulin Ratio (1.0-2.8) Lipase (23-300) U/L COVID-19 PCR Negative (Negative) Imaging Data Chest x-ray: Radiologist's Impression: [address] [id number] ReportSigned Patient: Amandeep Hdz AMR#: [id number]: 9Acct:[id number]/Sex: 70 / MDate of Service: 09/07/20Loc: EDAccession Number: [id number] Procedure: XR chest 1V Ordering Provider: Cleopatra Joshi D.O. PROCEDURE: XR CHEST 1V INDICATIONS: chest pain TECHNIQUE: One view of the chest was acquired. COMPARISON: [facility], , CHEST 1 VIEW, 04/29/2015, 13:55. [facility], , CHEST 2 VIEW, 08/13/2007, 16:49. FINDINGS: Surgical changes and devices: None. Lungs and pleura: Lungs are clear except for a mild chronic interstitial prominence. No pleural effusions or pneumothorax. Mediastinum: Mediastinal contours appear normal. Heart size is normal. Bones and chest wall: No suspicious bony lesions. There has been prior acromioplasty on the right with widening of the AC joint interspace. Overlying soft tissues appear unremarkable. IMPRESSION: No acute disease, source of new chest pain is not found. Old acromioplasty right shoulder. Chronic mild interstitial prominence. Dictated by: Hardeep Pillai M.D. on 09/07/2020 at 15:51 Approved by: Hardeep Pillai M.D. on 09/07/2020 at 15:52 CTA Chest/Abd/Pelvis: Radiologist's Impression: [address] [id number] Scan ReportSigned Patient: Amandeep Hdz AMR#: [id number]: 9Acct:[id number]/Sex: 70 / MDate of Service: 09/07/20Loc: EDAccession Number: [id number] Procedure: CT angio chest abdomen pelvis Ordering Provider: Brenda Truong PROCEDURE: CT ANGIO CHEST ABDOMEN PELVIS INDICATIONS: Hx aortic stent, current chest pain TECHNIQUE: Precontrast 5 mm thick sections acquired from the lung apices to the iliac crests. After the administration of intravenous contrast, 2.5 mm thick sections again acquired from the lung apices to the iliac crests. Maximum intensity projection (MIP) oblique sagittal and coronal reformats were then acquired. For radiation dose reduction, the following was used: automated exposure control. COMPARISON: None. FINDINGS: Image quality: Excellent. AORTA: Mild to moderate amount of atherosclerotic disease is seen throughout the aorta. There is no thoracic or abdominal aortic aneurysm. No aortic dissection is seen. CHEST: Lungs and pleura: No acute airspace opacities. No pleural effusions or pneumothorax. Central and peripheral airways are patent and normal in caliber. Mediastinum: Heart size is mildly enlarged. No pericardial effusion. No mediastinal or hilar adenopathy by size criteria. Central pulmonary arteries are normal in size. Esophagus is normal in caliber. There is a small hiatal hernias. Bones and chest wall: No axillary adenopathy by size criteria. Thyroid gland is within normal limits. No suspicious bony lesions. No vertebral body compression fractures. ABDOMEN: Vasculature: Celiac trunk and mesenteric arteries are patent. Renal arteries are also patent. Solid organs: Liver is normal in size and enhancement. Gallbladder contains multiple stones in its dependent portion. No gallbladder wall thickening or pericholecystic fluid. Biliary system is non dilated. Pancreas enhances normally. Spleen is normal in size and enhancement. No adrenal nodules. Both kidneys are normal in size and enhancement, without hydronephrosis. 2 lower pole right renal cysts are seen measures up to 4.2 x 4.3 cm in size. Peritoneum and bowel: No free fluid or air. Bowel loops are normal in caliber and wall thickness. Nodes and vessels: No retroperitoneal or mesenteric adenopathy by size criteria. Inferior vena cava is normal in morphology. Miscellaneous: No ventral hernias. PELVIS: Genitourinary: There is diffuse bladder wall thickening. Enlarged prostate gland with mass effect on floor of urinary bladder is seen. Miscellaneous: No inguinal lymphadenopathy. Small right inguinal hernia containing fat only.. No ventral hernias. Bones: No suspicious bony lesions. No vertebral body compression fractures. Degenerative disc disease throughout thoracic and lumbar spine is seen. DISH like changes are noted throughout thoracic spine with flowing bridging osteophytes. IMPRESSION: 1. No aortic aneurysm or dissection. No gross pulmonary emboli. Patent major branches of abdominal aorta. 2. [id number] atherosclerotic disease throughout the aorta. Borderline cardiomegaly, no pericardial effusion. 3. Bilateral lungs are clear. Airway is patent. 4. No acute inflammatory process within abdomen or pelvis. No free fluid or free air. 5. Right renal cysts. No hydronephrosis. No renal stone. Diffuse bladder wall thickening. Enlarged prostate gland with mass effect on floor of urinary bladder which may represent urinary outlet obstruction. 6. Degenerative disc disease throughout thoracic and lumbar spine with findings in thoracic spine suggest diffuse idiopathic skeletal hyperostosis. Dictated by: Dale Card M.D. on 09/07/2020 at 17:25 Approved by: Dale Card M.D. on 09/07/2020 at 17:35 ECG Data Interpretation: 1517: Sinus rhythm, rate eating a year interval 146, QTC 426. No ST elevation or ST depression. No T-wave inversion. Tall T-waves which is consistent with prior EKGs [id number] and 2017. 1647: Sinus rhythm, rate 61, GA interval 152, QTC 382. No ST elevation or ST depression. No T-wave abnormality. No ectopy. Tall T-waves noted, this is consistent with prior EKGs. EKGs also viewed by Dr. Joshi per protocol. [facility] Narrative Medical decision making narrative: 70-year-old male with extensive cardiac history, presents to the emergency department for chest pressure on exertion. I have a high suspicion that this is most likely cardiac related given patient's history, heart score of 7, pain resolved with nitroglycerin, and patient's 2nd elevated troponin. Patient remained chest pain-free after [address] angio was ordered as patient stated he had a clip placed in his aorta, there was some concern for aneurysm. This was negative for any PEs or aneurysms. Cardiology was consulted at [facility], who recommended transfer, IV heparin, and NPO status at this time. I spoke with the hospitalist at [facility], accepted for transfer. I discussed the risks and benefits with patient of starting heparin including bleeding in the brain or abdominal cavity, patient consented to starting IV heparin. Patient also consented to transfer. He remained hemodynamically stable throughout the stay in the emergency department, chest pain-free post nitro. ALS was called for transfer. All patient and family questions answered. <Flavio Montgomery, DO - Last Filed: 09/07/20 21:19> Lab Data Labs: Lab Results 09/07/20 09/07/20 09/07/20 Range/Units 15:28 15:28 15:28 WBC 3.7 L (4.5-11.0) X10^3/uL RBC 5.32 (4.5-5.9) X10^6/uL Hgb 14.5 (13.5-17.5) g/dL Hct 43.5 (41-53) % MCV 81.9 (80-100) fL MCH 27.4 (26-34) PG MCHC 33.4 (30-36) % RDW 14.0 (11.6-14.8) % Plt Count 149 L (150-400) X10^3/uL Neut % (Auto) 56.1 (50-75) % Lymph % (Auto) 34.6 (25-40) % Otoe % (Auto) 5.2 (3-14) % Eos % (Auto) 3.6 (2-4) % Baso % (Auto) 0.5 (0-2) % Neut # (Auto) 2100 (1427-4142) /uL Lymph # (Auto) 1300 (1120-5002) /uL Otoe # (Auto) 200 (0-900) /uL Eos # (Auto) 100 (0-450) /uL Baso # (Auto) 0 (0-100) /uL PT 12.6 (10.1-12.7) SECONDS INR 1.1 (0.9-1.3) APTT 36 (26.4-36.2) SECONDS Sodium 137 (137-145) mmol/L Potassium 3.9 (3.4-5.1) mmol/L Chloride 105 (98-107) mmol/L Carbon Dioxide 25 (22-32) mmol/L BUN 15 (9-20) mg/dL Creatinine 0.82 (0.66-1.25) mg/dL Estimated GFR > 60.0 (>60) mL/min BUN/Creatinine Ratio 18.3 (6-22) Glucose 113 H (80-110) mg/dL Calcium 9.5 (8.4-10.2) mg/dL Total Bilirubin 0.7 (0.2-1.3) mg/dL AST 28 (17-59) IU/L ALT 26 (<50) IU/L Alkaline Phosphatase 107 (38-126) U/L Total Creatine Kinase 55 (55-170) U/L CK-MB (CK-2) TNP CK-MB (CK-2) Rel Index TNP Troponin I < 0.012 (0.01-0.034) ng/mL Total Protein 7.3 (6.3-8.2) g/dL Albumin 4.5 (3.5-5.0) g/dL Globulin 2.8 (1.7-4.1) g/dL Albumin/Globulin Ratio 1.6 (1.0-2.8) Lipase 90 (23-300) U/L COVID-19 PCR (Negative) 09/07/20 09/07/20 Range/Units 16:30 17:33 WBC (4.5-11.0) X10^3/uL RBC (4.5-5.9) X10^6/uL Hgb (13.5-17.5) g/dL Hct (41-53) % MCV (80-100) fL MCH (26-34) PG MCHC (30-36) % RDW (11.6-14.8) % Plt Count (150-400) X10^3/uL Neut % (Auto) (50-75) % Lymph % (Auto) (25-40) % Otoe % (Auto) (3-14) % Eos % (Auto) (2-4) % Baso % (Auto) (0-2) % Neut # (Auto) (8119-9109) /uL Lymph # (Auto) (2209-6822) /uL Otoe # (Auto) (0-900) /uL Eos # (Auto) (0-450) /uL Baso # (Auto) (0-100) /uL PT (10.1-12.7) SECONDS INR (0.9-1.3) APTT (26.4-36.2) SECONDS Sodium (137-145) mmol/L Potassium (3.4-5.1) mmol/L Chloride (98-107) mmol/L Carbon Dioxide (22-32) mmol/L BUN (9-20) mg/dL Creatinine (0.66-1.25) mg/dL Estimated GFR (>60) mL/min BUN/Creatinine Ratio (6-22) Glucose (80-110) mg/dL Calcium (8.4-10.2) mg/dL Total Bilirubin (0.2-1.3) mg/dL AST (17-59) IU/L ALT (<50) IU/L Alkaline Phosphatase (38-126) U/L Total Creatine Kinase (55-170) U/L CK-MB (CK-2) CK-MB (CK-2) Rel Index Troponin I 0.051 H (0.01-0.034) ng/mL Total Protein (6.3-8.2) g/dL Albumin (3.5-5.0) g/dL Globulin (1.7-4.1) g/dL Albumin/Globulin Ratio (1.0-2.8) Lipase (23-300) U/L COVID-19 PCR Negative (Negative) Discharge Plan Departure Patient Disposition: [facility] Clinical Impression: Non-ST elevation MN (NSTEMI), Angina pectoris, unstable Prescriptions: No Action multivitamin Tablet 1 tab PO DAILY Qty: 0 RF: 0 clopidogrel [Plavix] 75 mg tablet 75 mg PO QDAY Qty: 90 RF: 3 simvastatin [Zocor] 80 mg tablet 80 mg PO QDAY Qty: 90 RF: 3 trazodone 50 mg tablet 50 mg PO HS Qty: 90 RF: 3 lisinopril 10 mg tablet 10 mg PO QDAY Qty: 90 RF: 3 fluoxetine 20 mg capsule 20 mg PO QDAY Qty: 90 RF: 3 finasteride 5 mg tablet 5 mg PO DAILY RF: 0 tamsulosin [Flomax] 0.4 mg capsule 0.4 mg PO HS Qty: 90 RF: 3 aspirin [Adult Low Dose Aspirin] 81 mg tablet,delayed release (DR/EC) 81 mg PO DAILY Qty: 100 RF: 5 Triple Flex Mood, Joint CALLIE-e 500-200 mg Tablet 1 tab PO DAILY RF: 0 Referrals: Miguel Mera MD [Primary Care Provider] - <Flavio Montgomery, - Last Filed: 09/07/20 21:19> [facility] Dr Montgomery Co-Sign Statement: I was available for consultation during this patient's emergency department visit. This chart is signed by myself for administrative purposes only. I did not have direct contact with this patient during this visit. They were seen independently by the APC.
[2020-09-07 16:02] LABS: Troponin I < 0.012 ng/mL (0.01-0.034)
[2020-09-07] MEDS: ASPIRIN 81 MG CHEW TAB 243 MG PO (16:03)
[2020-09-07] MEDS: NITROGLYCERIN 0.4 MG SL TAB SL ×2 (16:03→16:17)
[2020-09-07] MEDS: ACETAMINOPHEN 325 MG TABLET 975 MG PO (16:03)
[2020-09-07 16:05] LABS: INR 1.1 (0.9-1.3); Prothrombin Time 12.6 SECONDS (10.1-12.7)
[2020-09-07 16:07] LABS: PTT Partial Thromboplastin Tim 36 SECONDS (26.4-36.2)
--- NOTE | 2020-09-07 16:34 | PC.NURSE ---
PT chest pain and pressure resolved after second dose of nitro.
--- NOTE | 2020-09-07 16:54 | DI.CT.S_ITS ---
PROCEDURE: CT ANGIO CHEST ABDOMEN PELVIS INDICATIONS: Hx aortic stent, current chest pain TECHNIQUE: Precontrast 5 mm thick sections acquired from the lung apices to the iliac crests. After the administration of intravenous contrast, 2.5 mm thick sections again acquired from the lung apices to the iliac crests. Maximum intensity projection (MIP) oblique sagittal and coronal reformats were then acquired. For radiation dose reduction, the following was used: automated exposure control. COMPARISON: None. FINDINGS: Image quality: Excellent. AORTA: Mild to moderate amount of atherosclerotic disease is seen throughout the aorta. There is no thoracic or abdominal aortic aneurysm. No aortic dissection is seen. CHEST: Lungs and pleura: No acute airspace opacities. No pleural effusions or pneumothorax. Central and peripheral airways are patent and normal in caliber. Mediastinum: Heart size is mildly enlarged. No pericardial effusion. No mediastinal or hilar adenopathy by size criteria. Central pulmonary arteries are normal in size. Esophagus is normal in caliber. There is a small hiatal hernias. Bones and chest wall: No axillary adenopathy by size criteria. Thyroid gland is within normal limits. No suspicious bony lesions. No vertebral body compression fractures. ABDOMEN: Vasculature: Celiac trunk and mesenteric arteries are patent. Renal arteries are also patent. Solid organs: Liver is normal in size and enhancement. Gallbladder contains multiple stones in its dependent portion. No gallbladder wall thickening or pericholecystic fluid. Biliary system is non dilated. Pancreas enhances normally. Spleen is normal in size and enhancement. No adrenal nodules. Both kidneys are normal in size and enhancement, without hydronephrosis. 2 lower pole right renal cysts are seen measures up to 4.2 x 4.3 cm in size. Peritoneum and bowel: No free fluid or air. Bowel loops are normal in caliber and wall thickness. Nodes and vessels: No retroperitoneal or mesenteric adenopathy by size criteria. Inferior vena cava is normal in morphology. Miscellaneous: No ventral hernias. PELVIS: Genitourinary: There is diffuse bladder wall thickening. Enlarged prostate gland with mass effect on floor of urinary bladder is seen. Miscellaneous: No inguinal lymphadenopathy. Small right inguinal hernia containing fat only.. No ventral hernias. Bones: No suspicious bony lesions. No vertebral body compression fractures. Degenerative disc disease throughout thoracic and lumbar spine is seen. DISH like changes are noted throughout thoracic spine with flowing bridging osteophytes. IMPRESSION: 1. No aortic aneurysm or dissection. No gross pulmonary emboli. Patent major branches of abdominal aorta. 2. Fsij-hq-[id number] atherosclerotic disease throughout the aorta. Borderline cardiomegaly, no pericardial effusion. 3. Bilateral lungs are clear. Airway is patent. 4. No acute inflammatory process within abdomen or pelvis. No free fluid or free air. 5. Right renal cysts. No hydronephrosis. No renal stone. Diffuse bladder wall thickening. Enlarged prostate gland with mass effect on floor of urinary bladder which may represent urinary outlet obstruction. 6. Degenerative disc disease throughout thoracic and lumbar spine with findings in thoracic spine suggest diffuse idiopathic skeletal hyperostosis. Dictated by: Dale Card M.D. on 09/07/2020 at 17:25 Approved by: Dale Card M.D. on 09/07/2020 at 17:35
[2020-09-07 17:01] LABS: COVID19 -Nasal RAPID Negative (Negative)
[2020-09-07] MEDS: SODIUM CHLORIDE 0.9% 1,000 ML 150 ML IV (17:18)
[2020-09-07 18:02] LABS: Troponin I 0.051 ng/mL (0.01-0.034)
[2020-09-07] MEDS: HEPARIN DRIP 25,000 UNIT/500 ML IV.SOLN 20 UNIT IV (19:07)
[2020-09-07] MEDS: HEPARIN 5,000 UNIT/ML VIAL 5000 UNIT IV (19:07)
== END 2020-09-08 00:15 | disposition short-term general hospital (02) ==
PROVIDERS: Emergency Medicine; Emergency Provider Nurse Practitioner; PCP Family Medicine
DX: I21.4 Non-ST elevation (NSTEMI) myocardial infarction (principal); I25.110 Atherosclerotic heart disease of native coronary artery with unstable angina pectoris; I10 Essential (primary) hypertension; E78.5 Hyperlipidemia, unspecified; Z95.5 Presence of coronary angioplasty implant and graft; Z79.01 Long term (current) use of anticoagulants; Z79.82 Long term (current) use of aspirin; R11.2 Nausea with vomiting, unspecified; E66.9 Obesity, unspecified; Z68.34 Body mass index [BMI] 34.0-34.9, adult
CPT/HCPCS: 36415; 71045; 71275; 74174; 80053; 82550; 83690; 84484; 85025; 85610; 85730; 87635; 93005; 96361; 96365; 96366; 96375; 99283; 99285; J1644; Q9967

== ENCOUNTER → 2020-11-08 14:00 | Outpatient (CLI) | payer OTHER, SELFPAY ==
[2020-11-08 16:46] LABS: COVID19 -Nasal RAPID Negative (Negative)
== END ==
PROVIDERS: PCP Family Medicine; Visit Provider Physician Assistant
DX: Z01.812 Encounter for preprocedural laboratory examination (principal); Z20.822 Contact with and (suspected) exposure to COVID-19
CPT/HCPCS: 87635

== ENCOUNTER → 2020-11-17 08:21 | Outpatient (CLI) | payer OTHER, SELFPAY ==
--- NOTE | 2020-11-17 08:22 | DI.RAD.S_ITS ---
PROCEDURE: XR KNEE RT 3V INDICATIONS: evaluate right knee pain TECHNIQUE: 3 views of the knee were acquired. COMPARISON: None. FINDINGS: Bones: No fractures or dislocations. No suspicious bony lesions. Soft tissues: There appears to be a moderate size suprapatellar joint effusion. No suspicious soft tissue calcifications. IMPRESSION: Mild degenerative osteoarthritis narrowing the joint space medially on the frontal view, apparent moderate suprapatellar joint effusion. Please correlate for trauma, given that a joint effusion associated with trauma may indicate internal derangement. Dictated by: Hardeep Pillai M.D. on 11/17/2020 at 9:22 Approved by: Hardeep Pillai M.D. on 11/17/2020 at 9:23
== END ==
PROVIDERS: PCP Family Medicine; Referring Provider Family Medicine; Visit Provider Family Medicine
DX: M25.461 Effusion, right knee (principal); M17.11 Unilateral primary osteoarthritis, right knee
CPT/HCPCS: 73562

== ENCOUNTER → 2021-01-01 11:10 | Outpatient (CLI) | payer OTHER, SELFPAY ==
--- NOTE | 2021-01-01 11:12 | DI.MRI.S_ITS ---
PROCEDURE: MR FEMUR RT WO CON INDICATIONS: Evaluate cause of pain in upper right leg TECHNIQUE: Noncontrast coronal and sagittal T1 spin echo and STIR; axial T1 spin echo and T2 fast spin echo with fat saturation through the right femur. COMPARISON: None. FINDINGS: Image quality: Excellent. Bones: The visualized bone marrow demonstrates normal signal on all sequences. The overlying cortex appears intact. No fractures lines or intra-osseous lesions. T2 hyperintensity suggest mild strain of the distal vastus medialis and vastus intermedius muscles. Subcutaneous tissues appear normal. No soft tissue masses are present. There is suggestion of thickening and T2 hyperintensity involving the origin of the straight head of the rectus femoris muscle which is otherwise grossly unremarkable. This is only partially visualized, and could be further characterized with dedicated hip MRI as clinically warranted. Right knee joint effusion is seen, and this could be further investigated with dedicated right knee MRI as clinically necessary. There is mild right hamstring origin tendinopathy, age unknown. IMPRESSION: No suspicious marrow signal changes in the femur. Possible low-grade strain of the distal quadriceps musculature. No evidence of occult fracture Mild strain of the origin of the straight head of the rectus femoris muscle, which could be better assessed with dedicated right hip MRI as clinically necessary. This is only partially visualized (not in exam [id number]) Dictated by: Cliff Greene M.D. on 01/03/2021 at 9:17 Approved by: Cliff Greene M.D. on 01/03/2021 at 9:26
== END ==
PROVIDERS: PCP Family Medicine; Referring Provider Family Medicine; Visit Provider Family Medicine
DX: S76.311A Strain of muscle, fascia and tendon of the posterior muscle group at thigh level, right thigh, initial encounter (principal); M25.461 Effusion, right knee; M79.604 Pain in right leg
CPT/HCPCS: 73718

== ENCOUNTER → 2021-01-14 12:33 | Outpatient (CLI) | payer OTHER, SELFPAY ==
[2021-01-14 13:18] LABS: BUN Creatinine Ratio 16.9 (6-22); Blood Urea Nitrogen 15 mg/dL (9-20); Calcium 9.7 mg/dL (8.4-10.2); Carbon Dioxide 25 mmol/L (22-32); Chloride 106 mmol/L (98-107); Cholesterol 122 mg/dL (140-199); Estimated Glomerular Filt Rate > 60.0 mL/min (>60); Glucose 102 mg/dL (80-110); HDL Cholesterol 44 mg/dL (40-60); HEMOLYSIS < 15 (0-50); LDL Cholesterol Calculated 54 mg/dL (<100); Potassium 4.1 mmol/L (3.4-5.1); Sodium 139 mmol/L (137-145); Triglycerides 121 mg/dL (35-150)
== END ==
PROVIDERS: PCP Family Medicine; Referring Provider Internal Medicine Interventional Cardiology; Visit Provider Internal Medicine Interventional Cardiology
DX: I25.10 Atherosclerotic heart disease of native coronary artery without angina pectoris (principal)
CPT/HCPCS: 36415; 80048; 80061

== ENCOUNTER → 2021-03-16 15:07 | Outpatient (CLI) | payer OTHER, SELFPAY ==
[2021-03-17 08:47] LABS: PSA Free % 17.9 % (.); PSA, Total 1.4 ng/mL (0.0-4.0)
== END ==
PROVIDERS: PCP Family Medicine; Referring Provider Student in an Organized Health Care Education/Training Program; Visit Provider Student in an Organized Health Care Education/Training Program
DX: R97.20 Elevated prostate specific antigen [PSA] (principal)
CPT/HCPCS: 36415; 84153; 84154

== ENCOUNTER → 2021-04-19 11:05 | Outpatient (CLI) | payer OTHER, SELFPAY ==
[2021-04-19 12:15] LABS: BUN Creatinine Ratio 18.6 (6-22); Blood Urea Nitrogen 16 mg/dL (9-20); Calcium 9.8 mg/dL (8.4-10.2); Carbon Dioxide 27 mmol/L (22-32); Chloride 107 mmol/L (98-107); Cholesterol 98 mg/dL (140-199); Estimated Glomerular Filt Rate > 60.0 mL/min (>60); Glucose 97 mg/dL (80-110); HDL Cholesterol 32 mg/dL (40-60); HEMOLYSIS < 15 (0-50); LDL Cholesterol Calculated 43 mg/dL (<100); Potassium 4.3 mmol/L (3.4-5.1); Sodium 141 mmol/L (137-145); Triglycerides 116 mg/dL (35-150)
== END ==
PROVIDERS: PCP Family Medicine; Referring Provider Internal Medicine Interventional Cardiology; Visit Provider Internal Medicine Interventional Cardiology
DX: I25.10 Atherosclerotic heart disease of native coronary artery without angina pectoris (principal); I10 Essential (primary) hypertension
CPT/HCPCS: 36415; 80048; 80061

== ENCOUNTER → 2021-05-11 14:14 | Outpatient (CLI) | payer OTHER, SELFPAY ==
--- NOTE | 2021-05-11 14:15 | DI.RAD.S_ITS ---
PROCEDURE: XR CERVICAL SPINE 2V OR 3V INDICATIONS: neck pain, reduced ROM, radiculopathy TECHNIQUE: 3 view(s) of the cervical spine were acquired. COMPARISON: None. FINDINGS: Bones: No fractures or dislocations to the T1 level. The lateral masses of C1 appear intact on the odontoid view. No suspicious bony lesions. Multilevel disc degeneration, most notably and moderate from the C4 through the T1 level. Mild multilevel mid and lower cervical spine facet joint arthropathy and uncovertebral hypertrophy. There is calcification of the anterior longitudinal ligament with flowing syndesmophytes. Osteopenia. Soft tissues: No prevertebral soft tissue swelling. IMPRESSION: 1. Multilevel spondylosis. 2. Calcification of the anterior longitudinal ligament with multilevel flowing syndesmophytes which can be associated with ankylosing spondylitis. Dictated by: Marco Clements [facility] Interpreted: Tang Castro MD on 05/11/2021 at 15:13 Transcribed by: JAIME on 05/11/2021 at 15:14 Approved by: Tang Castro M.D. on 05/11/2021 at 15:30
== END ==
PROVIDERS: PCP Family Medicine; Referring Provider Family Medicine; Visit Provider Family Medicine
DX: M54.2 Cervicalgia (principal); M47.812 Spondylosis without myelopathy or radiculopathy, cervical region; M79.601 Pain in right arm; M79.602 Pain in left arm; R20.2 Paresthesia of skin
CPT/HCPCS: 72040

== ENCOUNTER → 2021-05-13 10:29 | Outpatient (CLI) | payer OTHER, SELFPAY ==
[2021-05-13 11:17] LABS: Erythrocyte Sedimentation Rate 6 MM/HR (0-15)
[2021-05-13 11:27] LABS: C-Reactive Protein Quant < 0.5 mg/dL (<1.0)
[2021-05-18 08:57] LABS: HLA B27 Negative (.)
== END ==
PROVIDERS: PCP Family Medicine; Referring Provider Family Medicine; Visit Provider Family Medicine
DX: M48.12 Ankylosing hyperostosis [Forestier], cervical region (principal); M54.2 Cervicalgia
CPT/HCPCS: 36415; 81374; 85651; 86140

== ENCOUNTER → 2021-06-09 14:25 | Outpatient (CLI) | payer OTHER, SELFPAY | PROVIDERS: PCP Family Medicine; Referring Provider Family Medicine; Visit Provider Family Medicine | DX: R20.2 Paresthesia of skin (principal); M79.602 Pain in left arm; M79.601 Pain in right arm | CPT/HCPCS: 95886; 95911 ==

== ENCOUNTER → 2022-04-26 12:31 | Outpatient (CLI) | payer OTHER, SELFPAY ==
[2022-04-27 09:57] LABS: PSA Free % 19.4 % (.); PSA, Total 1.6 ng/mL (0.0-4.0)
== END ==
PROVIDERS: PCP Family Medicine; Referring Provider Student in an Organized Health Care Education/Training Program; Visit Provider Student in an Organized Health Care Education/Training Program
DX: R97.20 Elevated prostate specific antigen [PSA] (principal)
CPT/HCPCS: 36415; 84153; 84154

== ENCOUNTER → 2022-06-27 09:24 | Outpatient (CLI) | payer OTHER, SELFPAY ==
[2022-06-27 10:36] LABS: Blood Urea Nitrogen 13 mg/dL (9-20); Calcium 9.3 mg/dL (8.4-10.2); Carbon Dioxide 26 mmol/L (22-32); Chloride 107 mmol/L (98-107); Cholesterol 126 mg/dL (140-199); Estimated Glomerular Filt Rate > 60 mL/min (>60); Glucose 94 mg/dL (80-110); HDL Cholesterol 38 mg/dL (40-60); HEMOLYSIS < 15 (0-50); LDL Cholesterol Calculated 65 mg/dL (<100); Potassium 4.1 mmol/L (3.4-5.1); Sodium 140 mmol/L (137-145); Triglycerides 116 mg/dL (35-150)
== END ==
PROVIDERS: PCP Family Medicine; Referring Provider Internal Medicine Interventional Cardiology; Visit Provider Internal Medicine Interventional Cardiology
DX: E78.5 Hyperlipidemia, unspecified (principal); I25.810 Atherosclerosis of coronary artery bypass graft(s) without angina pectoris
CPT/HCPCS: 36415; 80048; 80061

== ENCOUNTER 2023-04-16 22:04 | Emergency (ER) | payer OTHER, SELFPAY ==
[2023-04-16 22:05] VITALS: BP 130/74; PULSE 68; RESP 18; TEMP 36.6; O2SAT 97
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
[2023-04-16] MEDS: cephALEXin 250 MG CAPSULE 500 MG PO (22:40)
[2023-04-16 22:48] VITALS: BP 118/72; PULSE 66; O2SAT 97
== END 2023-04-16 22:48 | disposition home or self-care (01) ==
PROVIDERS: Emergency Provider Emergency Medicine; PCP Family Medicine
DX: L03.113 Cellulitis of right upper limb (principal)
CPT/HCPCS: 99283

== ENCOUNTER → 2023-06-20 08:55 | Outpatient (CLI) | payer OTHER, SELFPAY ==
[2023-06-20 10:16] LABS: Add Manual Diff / Slide Review NO; Basophils Absolute Auto 0 /uL (0-100); Basophils Percent Auto 0.4 % (0-2); Eosinophils Absolute Auto 300 /uL (0-450); Eosinophils Percent Auto 5.5 % (2-4); Hematocrit 42.4 % (41-53); Hemoglobin 14.5 g/dL (13.5-17.5); Lymphocytes Absolute Auto 1500 /uL (1100-4500); Lymphocytes Percent Auto 30.5 % (25-40); Mean Corpuscular HGB Conc 34.1 % (30-36); Mean Corpuscular Hemoglobin 27.8 PG (26-34); Mean Corpuscular Volume 81.3 fL (80-100); Monocytes Absolute Auto 400 /uL (0-900); Monocytes Percent Auto 7.1 % (3-14); Neutrophils Absolute Auto 2800 /uL (1500-7000); Neutrophils Percent Auto 56.5 % (50-75); Platelet Count 125 X10^3/uL (150-400); Red Blood Cell Count 5.21 X10^6/uL (4.5-5.9); Red Cell Distribution Width 14.1 % (11.6-14.8)
[2023-06-20 10:45] LABS: Creatinine Urine Random 127.4 mg/dL
[2023-06-20 10:49] LABS: Microalbumin Urine Random < 0.6 mg/dL (0-1.6)
[2023-06-20 10:55] LABS: Alanine Aminotransferase 40 IU/L (<50); Albumin Globulin Ratio 1.7 (1.0-2.8); Alkaline Phosphatase 114 U/L (38-126); Aspartate Aminotransferase 31 IU/L (17-59); BUN Creatinine Ratio 21.3 (6-22); Bilirubin Total 0.7 mg/dL (0.2-1.3); Blood Urea Nitrogen 17 mg/dL (9-20); Calcium 9.7 mg/dL (8.4-10.2); Carbon Dioxide 24 mmol/L (22-32); Chloride 105 mmol/L (98-107); Cholesterol 135 mg/dL (140-199); Estimated Glomerular Filt Rate > 60 mL/min (>60); Globulin 2.4 g/dL (1.7-4.1); Glucose 93 mg/dL (80-110); HDL Cholesterol 37 mg/dL (40-60); HEMOLYSIS < 15 (0-50); LDL Cholesterol Calculated 50 mg/dL (<100); Sodium 137 mmol/L (137-145); Total Protein 6.4 g/dL (6.3-8.2); Triglycerides 238 mg/dL (35-150)
[2023-06-20 11:11] LABS: TSH w/ Reflex to FT4 3.14 uIU/mL (0.47-4.68)
[2023-06-20 11:14] LABS: Prostate Specific Antigen Scrn 2.15 ng/mL (0.1-4.0)
== END ==
PROVIDERS: PCP Family Medicine; Referring Provider Family Medicine; Visit Provider Family Medicine
DX: E66.9 Obesity, unspecified (principal); Z12.5 Encounter for screening for malignant neoplasm of prostate; E78.5 Hyperlipidemia, unspecified; I10 Essential (primary) hypertension; I25.10 Atherosclerotic heart disease of native coronary artery without angina pectoris; R11.0 Nausea
CPT/HCPCS: 36415; 80053; 80061; 82043; 82570; 84443; 85025; G0103

== ENCOUNTER → 2023-07-05 14:50 | Outpatient (CLI) | payer OTHER, SELFPAY ==
[2023-07-05 15:30] LABS: Hematocrit 43.1 % (41-53); Hemoglobin 14.6 g/dL (13.5-17.5); Mean Corpuscular HGB Conc 33.8 % (30-36); Mean Corpuscular Hemoglobin 27.6 PG (26-34); Mean Corpuscular Volume 81.6 fL (80-100); Red Blood Cell Count 5.29 X10^6/uL (4.5-5.9); Red Cell Distribution Width 13.7 % (11.6-14.8); White Blood Cell Count 4.8 X10^3/uL (4.5-11.0)
[2023-07-05 15:40] LABS: Neutrophils Absolute Manual 3120 /uL (3000-5900); Total Cells Counted 100
[2023-07-05 15:41] LABS: RBC Morphology Normal Morphology
[2023-07-05 15:42] LABS: Platelet Count 137 X10^3/uL (150-400)
[2023-07-06 04:11] LABS: HBsAg Screen Negative (Negative); Hepatitis A Antibody IgM Negative (Negative); Hepatitis B Core Antibody IgM Negative (Negative); Hepatitis C Antibody Non Reactive (Non Reactive)
== END ==
PROVIDERS: PCP Family Medicine; Referring Provider Family Medicine; Visit Provider Family Medicine
DX: D75.839 Thrombocytosis, unspecified (principal); Z11.3 Encounter for screening for infections with a predominantly sexual mode of transmission
CPT/HCPCS: 36415; 80074; 85025

== ENCOUNTER → 2023-09-18 08:57 | Outpatient (CLI) | payer OTHER, SELFPAY ==
[2023-09-18 10:08] LABS: BUN Creatinine Ratio 22.7 (6-22); Blood Urea Nitrogen 17 mg/dL (9-20); Calcium 9.7 mg/dL (8.4-10.2); Carbon Dioxide 26 mmol/L (22-32); Chloride 107 mmol/L (98-107); Cholesterol 121 mg/dL (140-199); Estimated Glomerular Filt Rate > 60 mL/min (>60); Glucose 98 mg/dL (80-110); HDL Cholesterol 36 mg/dL (40-60); HEMOLYSIS < 15 (0-50); LDL Cholesterol Calculated 60 mg/dL (<100); Potassium 4.2 mmol/L (3.4-5.1); Sodium 139 mmol/L (137-145); Triglycerides 124 mg/dL (35-150)
== END ==
PROVIDERS: PCP Family Medicine; Referring Provider Internal Medicine Interventional Cardiology; Visit Provider Internal Medicine Interventional Cardiology
DX: I25.810 Atherosclerosis of coronary artery bypass graft(s) without angina pectoris (principal); E78.5 Hyperlipidemia, unspecified; R00.1 Bradycardia, unspecified
CPT/HCPCS: 36415; 80048; 80061; 84443

== ENCOUNTER → 2024-03-10 07:43 | Outpatient (CLI) | payer OTHER, SELFPAY ==
--- NOTE | 2024-03-11 00:23 | DI.NM.S_ITS ---
DATE OF SERVICE: 03/10/2024 PROCEDURE: Exercise stress test. INDICATIONS: CAD with bypass surgery in September 2020 with underlying hypertension, hyperlipidemia, history of tobacco abuse. Exercise stress test is being done for CAD risk stratification. CARDIAC STRESS: The patient underwent exercise stress test under the supervision of an attending staff. The patient walked on Dominick protocol for 6 minutes and achieved maximum heart rate of 128, which was 88% of target heart rate. 7 METS of workload. PHYLLIS positive 2%. Resting blood pressure 140/90 and peak blood pressure 200/100 mmHg. Baseline rhythm was sinus with occasional PVCs. During stress, some nonspecific ST-T changes without any convincing ischemic changes. During stress, no significant arrhythmias, however, in recovery, reappearance of PVCs. No ventricular tachycardia. During early exercise, the patient has mild chest discomfort, which increased to 4 on a scale of 1 to 10 at peak exercise and resolved within 4 minutes into the recovery. CONCLUSION: Exercise stress test did not show any obvious inducible ischemic changes; however, the patient had anginal discomfort, which got resolved within 4 minutes into the recovery. No significant arrhythmias during stress; however, in recovery, the patient has intermittent PVCs, which were seen at rest as well. Diminished exercise tolerance. Hypertensive blood pressure response. In view of angina and known coronary artery disease, I will call this study as an abnormal exercise stress test. Correlate clinically. Amandeep Hdz - ASIA/eric/AY doc#: [id number]/job#: [id number] dd: 03/10/2024 16:52:00 dt: 03/10/2024 23:16:00 DICTATING MD/COPIES TO: Eleazar Epps MD; Jagdeep Burrows MD COPIES MNE: REGGIE;
== END ==
PROVIDERS: PCP Family Medicine; Referring Provider Internal Medicine Interventional Cardiology; Visit Provider Internal Medicine Interventional Cardiology
DX: I25.810 Atherosclerosis of coronary artery bypass graft(s) without angina pectoris (principal); I10 Essential (primary) hypertension; E78.5 Hyperlipidemia, unspecified; Z87.891 Personal history of nicotine dependence
CPT/HCPCS: 93017

== ENCOUNTER → 2024-03-11 09:36 | Outpatient (CLI) | payer OTHER, SELFPAY ==
--- NOTE | 2024-03-11 09:39 | DI.RAD.S_ITS ---
PROCEDURE: XR LUMBAR SPINE 2-3V INDICATIONS: bilateral knee, hip, left ankle pain TECHNIQUE: 3 views of the lumbar spine were acquired. COMPARISON: None. FINDINGS: Bones: 5 [id number] vertebrae are present. There is normal bony alignment. No vertebral body compression fractures. No suspicious bony lesions. Multilevel degenerative disc disease, moderate at L4-L5 and L5-S1, mild at L1-L2, L2-L3 and L3-L4. Moderate facet arthropathy at L2-L3, L3-L4, L4-L5 and L5-S1. Baastrup's disease Soft tissues: Overlying bowel gas pattern is normal. No suspicious soft tissue calcifications. IMPRESSION: 1. Moderate spondylitic changes in lumbar spine as described. If clinical symptoms persist or clinical suspicion for pathology is high, consider a repeat examination in 7-10 days, or advanced imaging such as CT or MRI for further evaluation. Dictated by: Marilu Mcclelland M.D. on 03/11/2024 at 11:20 Approved by: Marilu Mcclelland M.D. on 03/11/2024 at 11:22
--- NOTE | 2024-03-11 09:39 | DI.RAD.S_ITS ---
PROCEDURE: XR KNEE LT 3V INDICATIONS: bilateral knee, hip, left ankle pain TECHNIQUE: 3 views of the knee were acquired. COMPARISON: [facility], CR, XR KNEE RT 3V, 11/17/2020, 8:23. FINDINGS: Bones: No fractures or dislocations. No suspicious bony lesions. Tricompartmental joint space narrowing with associated osteophytosis. Soft tissues: No joint effusion. No suspicious soft tissue calcifications. IMPRESSION: Dqzj-wh-jisavrbq tricompartmental osteoarthritis. Kellgren-Abraham Grade 2. Dictated by: Rony Wallace M.D. on 03/11/2024 at 10:57 Approved by: Rony Wallace M.D. on 03/11/2024 at 11:01
--- NOTE | 2024-03-11 09:39 | DI.RAD.S_ITS ---
PROCEDURE: XR HIP W PEL IF DONE JENA MIN 4V INDICATIONS: bilateral knee, hip, left ankle pain TECHNIQUE: AP pelvis with lateral view(s) of the bilateral hip(s). COMPARISON: None. FINDINGS: Bones: No fractures or dislocations. Pelvic ring appears intact. No suspicious bony lesions. Nonuniform joint space narrowing and osteophytic lipping of the acetabuli. Soft tissues: The visualized bowel gas pattern is normal. No suspicious soft tissue calcifications. IMPRESSION: No acute bony abnormality. Xxiy-dp-dowijtnj bilateral hip osteoarthritis. Dictated by: Rony Wallace M.D. on 03/11/2024 at 10:57 Approved by: Rony Wallace M.D. on 03/11/2024 at 10:57
--- NOTE | 2024-03-11 09:39 | DI.RAD.S_ITS ---
PROCEDURE: XR ANKLE LT MIN 3V INDICATIONS: bilateral knee, hip, left ankle pain TECHNIQUE: 3 views of the ankle were acquired. COMPARISON: None. FINDINGS: Bones: No fractures or dislocations. Ankle mortise is normally aligned. No suspicious bony lesions. Mild degenerative joint disease. Calcaneal spurring. Soft tissues: No tibiotalar joint effusion. Achilles tendon appears normal. IMPRESSION: 1. Mild degenerative joint disease. 2. Calcaneal spurring. Dictated by: Marilu Mcclelland M.D. on 03/11/2024 at 11:16 Approved by: Marilu Mcclelland M.D. on 03/11/2024 at 11:20
--- NOTE | 2024-03-11 09:39 | DI.RAD.S_ITS ---
PROCEDURE: XR KNEE RT 3V INDICATIONS: bilateral knee, hip, left ankle pain TECHNIQUE: 3 views of the knee were acquired. COMPARISON: [facility], CR, XR KNEE RT 3V, 11/17/2020, 8:23. FINDINGS: Bones: No fractures or dislocations. No suspicious bony lesions. Tricompartmental joint space narrowing with associated osteophytosis. Soft tissues: No joint effusion. No suspicious soft tissue calcifications. Chondrocalcinosis IMPRESSION: Tcdw-go-quohquqa tricompartmental osteoarthritis. Kellgren-Abraham Grade 2. Chondrocalcinosis, which can be seen in the setting of CPPD, aging, and parathyroid disorders. Dictated by: Rony Wallace M.D. on 03/11/2024 at 11:02 Approved by: Rony Wallace M.D. on 03/11/2024 at 11:02
== END ==
PROVIDERS: PCP Family Medicine; Referring Provider Family Medicine; Visit Provider Family Medicine
DX: M51.36 Other intervertebral disc degeneration, lumbar region (principal); M51.37 Other intervertebral disc degeneration, lumbosacral region; M47.816 Spondylosis without myelopathy or radiculopathy, lumbar region; M47.817 Spondylosis without myelopathy or radiculopathy, lumbosacral region; M17.0 Bilateral primary osteoarthritis of knee; M11.261 Other chondrocalcinosis, right knee; M16.0 Bilateral primary osteoarthritis of hip; M19.072 Primary osteoarthritis, left ankle and foot; M77.32 Calcaneal spur, left foot; M25.561 Pain in right knee; M25.562 Pain in left knee; M54.50 Low back pain, unspecified; M25.572 Pain in left ankle and joints of left foot; M25.551 Pain in right hip; M25.552 Pain in left hip; G89.29 Other chronic pain
CPT/HCPCS: 72100; 73522; 73562; 73610

== ENCOUNTER 2024-06-08 01:59 | Emergency (ER) | payer OTHER, SELFPAY ==
[2024-06-08] VITALS (8 sets, daily range): BP systolic 125–187; BP diastolic 72–85; PULSE 49–67; RESP 11–18; TEMP 37.1; O2SAT 97–98; BMI 33.7
--- NOTE | 2024-06-08 02:06 | DI.RAD.S_ITS ---
PROCEDURE: XR CHEST 1V INDICATIONS: Chest pain TECHNIQUE: One view of the chest was acquired. COMPARISON: [facility], , XR CHEST 1V, 09/07/2020, 15:40. [facility], , CHEST 1 VIEW, 04/29/2015, 13:55. FINDINGS: Surgical changes and devices: Median sternotomy wires. Lungs and pleura: Lungs are clear. No pleural effusions or pneumothorax. Mediastinum: Mediastinal contours appear normal. Heart size is normal. Bones and chest wall: No suspicious bony lesions. Overlying soft tissues appear unremarkable. IMPRESSION: No acute cardiopulmonary abnormality is seen. Findings are concordant with preliminary interpretation provided by [facility]. Dictated by: Eder Bravo M.D. on 06/08/2024 at 7:53 Approved by: Eder Bravo M.D. on 06/08/2024 at 7:53
--- NOTE | 2024-06-08 02:06 | EKG_ITS ---
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
[2024-06-08 02:27] LABS: Add Manual Diff / Slide Review NO; Basophils Absolute Auto 0 /uL (0-100); Basophils Percent Auto 0.4 % (0-2); Eosinophils Absolute Auto 300 /uL (0-450); Hematocrit 42.4 % (41-53); Hemoglobin 14.4 g/dL (13.5-17.5); Lymphocytes Absolute Auto 2500 /uL (1100-4500); Lymphocytes Percent Auto 31.2 % (25-40); Mean Corpuscular HGB Conc 33.9 % (30-36); Mean Corpuscular Hemoglobin 28.3 PG (26-34); Mean Corpuscular Volume 83.3 fL (80-100); Monocytes Absolute Auto 600 /uL (0-900); Monocytes Percent Auto 7.3 % (3-14); Neutrophils Absolute Auto 4500 /uL (1500-7000); Neutrophils Percent Auto 57.1 % (50-75); Platelet Count 141 X10^3/uL (150-400); Red Blood Cell Count 5.09 X10^6/uL (4.5-5.9); Red Cell Distribution Width 13.9 % (11.6-14.8); White Blood Cell Count 7.9 X10^3/uL (4.5-11.0)
[2024-06-08 02:34] LABS: Alanine Aminotransferase 23 IU/L (<50); Albumin 4.2 g/dL (3.5-5.0); Albumin Globulin Ratio 1.4 (1.0-2.8); Alkaline Phosphatase 108 U/L (38-126); Aspartate Aminotransferase 25 IU/L (17-59); BUN Creatinine Ratio 16.5 (6-22); Bilirubin Total 0.7 mg/dL (0.2-1.3); Blood Urea Nitrogen 17 mg/dL (9-20); Calcium 9.4 mg/dL (8.4-10.2); Carbon Dioxide 23 mmol/L (22-32); Chloride 104 mmol/L (98-107); Creatine Kinase 78 U/L (55-170); Estimated Glomerular Filt Rate > 60 mL/min (>60); Globulin 2.9 g/dL (1.7-4.1); Glucose 106 mg/dL (80-110); HEMOLYSIS 15 (0-50); Lipase 87 U/L (23-300); Potassium 3.6 mmol/L (3.4-5.1); Sodium 134 mmol/L (137-145); Total Protein 7.1 g/dL (6.3-8.2)
[2024-06-08 02:46] LABS: Troponin I < 0.012 ng/mL (0.01-0.034)
--- NOTE | 2024-06-08 02:59 | ED_ITS ---
HPI - Chest Pain General Chief Complaint: Chest Pain Stated Complaint: chest px Time Seen by Provider: 06/08/24 02:05 Source: patient and family Mode of arrival: Ambulatory Limitations: no limitations History of Present Illness HPI narrative: Patient is a 74-year-old male. A known history of coronary artery disease. Has had an ND in the past. Has had a coronary artery bypass graft. Is on metoprolol. States his heart rate is normally in the 50s and 60s range. He was here for evaluation of he was initially described as chest pain however upon further evaluation is more in the epigastric region. It is somewhat worse with palpation. He did not have any specific nausea and vomiting but states he did have quite a bit of saliva in his mouth at the onset of the symptoms. No problems breathing. No palpitations. No coughing. Pain does not radiate anywhere. He was not remember any specific incident the started the discomfort. He states this feels different than when he had his heart attack. He has had reflux disease in the past but he states that was many years ago. He was not currently on any reflux medicine. Related Data Home Medications Medication Instructions Recorded Confirmed multivitamin 1 tab PO DAILY ##0 07/25/11 03/11/24 metoprolol tartrate 25 mg tablet 12.5 mg PO DAILY 08/23/22 03/11/24 rosuvastatin 40 mg tablet 40 mg PO DAILY 03/11/24 03/11/24 Previous Rx's Medication Instructions Recorded aspirin 81 mg tablet,delayed 81 mg PO DAILY #100 tabs 01/01/19 release (Adult Low Dose Aspirin) finasteride 5 mg tablet See Rx Instructions .Route 06/12/23 .COMPLEX #90 tabs tamsulosin 0.4 mg capsule (Flomax) 0.4 mg PO HS #90 caps 06/12/23 atorvastatin 40 mg tablet See Rx Instructions .Route 06/28/23 .COMPLEX #90 tabs fluoxetine 20 mg capsule 20 mg PO DAILY #90 caps 03/12/24 trazodone 50 mg tablet 50 mg PO ONCE PM #90 tabs 03/12/24 sucralfate 100 mg/mL oral 10 ml PO QACHS #414 mL 06/08/24 suspension (Carafate) Allergies Allergy/AdvReac Type Severity Reaction Status Date / Time morphine AdvReac Mild INCREASED Verified 03/11/24 09:02 BP, TACHYCARDIA Review of Systems Review of Systems ROS Unobtainable: All systems reviewed & are unremarkable except as noted in HPI and below Patient History Medical History Actinic keratoses Sleep apnea Thrombocythemia Postural dizziness Nausea Segmental and somatic dysfunction of abdomen and other regions Segmental and somatic dysfunction of rib cage Thoracic region somatic dysfunction Cervical somatic dysfunction Cranial somatic dysfunction Stiff neck Sacral region somatic dysfunction Pelvic somatic dysfunction Lumbar region somatic dysfunction Acute right-sided low back pain with left-sided sciatica Chronic right-sided low back pain without sciatica Paresthesia and pain of both upper extremities Angina pectoris, unstable Non-ST elevation ND (NSTEMI) Hematuria (07/19/20) Folliculitis Epididymitis, right Pain of foot (11/02/15) Hemorrhoids Myalgia Surgical History Hx of CABG Family History Father Hypertension Heart disease Family/Other Alcohol abuse Substance abuse Social History household members: spouse Smoking Status: Former smoker Smoking Status: Former smoker alcohol intake frequency: a few times a week Substance Use Type: does not use Exam Initial Vital Signs Initial Vital Signs: Vital Signs Pulse Rate 64 06/08/24 02:04 Respiratory Rate 15 06/08/24 02:04 Pulse Oximetry 97 06/08/24 02:04 Const General: cooperative, comfortable and No ill appearing HENMT Head: normal to inspection and normocephalic Resp Effort & Inspection: normal respiratory effort Auscultation: clear to auscultation bilaterally Cardio Rate: bradycardic Rhythm: regular rhythm GI Inspection: non-distended Palpation: soft, No firm, No guarding, No rigid and tender (Epigastric region) Skin Other: Well-healed surgical scar midline chest consistent with stated CABG history Neuro General: patient alert, patient awake, patient oriented x3 and moves all extremities Extrem General: No edema Course Orders Ordered: ED Orders 06/08/24 02:06 XR chest 1V Stat EKG-12 Lead Stat 06/08/24 02:10 Complete Blood Count AUTO DIFF Stat Comprehensive Metabolic Panel Stat Lipase Stat Troponin & CK Cardiac Panel Stat 06/08/24 04:20 Troponin & CK Cardiac Panel Stat Discontinued Medications Al Hydrox/Mg Hydrox/Simethicone 20 ml/ Lidocaine HCl 15 ml 0 ml PO NOW ONE Stop: 06/08/24 02:59 Last Admin: 06/08/24 03:07 Dose: 35 ml Documented By: TALI Pantoprazole Sodium (Pantoprazole 40 Mg Vial) 40 mg IV NOW ONE Stop: 06/08/24 02:59 Last Admin: 06/08/24 03:07 Dose: 40 mg Documented By: TALI Vital Signs Vital signs: Vital Signs - 8 hr 06/08/24 02:04 06/08/24 02:15 06/08/24 02:30 Temperature 98.8 F Pulse Rate 64 67 51 L Respiratory Rate 15 18 12 Blood Pressure 187/85 H Pulse Oximetry 97 98 98 Oxygen Delivery Method Room Air 06/08/24 02:30 06/08/24 03:00 06/08/24 03:00 Temperature Pulse Rate 53 L Respiratory Rate 18 Blood Pressure 147/78 H 133/73 Pulse Oximetry 98 Oxygen Delivery Method MDM - Chest Pain Medical Records Data Attestation: I reviewed the patient's medical records. Lab Data Attestation: I reviewed the patient's lab results. 06/08/24 02:10 06/08/24 02:10 Labs: Lab Results 06/08/24 06/08/24 Range/Units 02:10 04:20 WBC 7.9 (4.5-11.0) X10^3/uL RBC 5.09 (4.5-5.9) X10^6/uL Hgb 14.4 (13.5-17.5) g/dL Hct 42.4 (41-53) % MCV 83.3 (80-100) fL MCH 28.3 (26-34) PG MCHC 33.9 (30-36) % RDW 13.9 (11.6-14.8) % Plt Count 141 L (150-400) X10^3/uL Neut % (Auto) 57.1 (50-75) % Lymph % (Auto) 31.2 (25-40) % [place] % (Auto) 7.3 (3-14) % Eos % (Auto) 4.0 (2-4) % Baso % (Auto) 0.4 (0-2) % Neut # (Auto) 4500 (9634-0150) /uL Lymph # (Auto) 2500 (7956-6364) /uL [place] # (Auto) 600 (0-900) /uL Eos # (Auto) 300 (0-450) /uL Baso # (Auto) 0 (0-100) /uL Sodium 134 L (137-145) mmol/L Potassium 3.6 (3.4-5.1) mmol/L Chloride 104 (98-107) mmol/L Carbon Dioxide 23 (22-32) mmol/L BUN 17 (9-20) mg/dL Creatinine 1.03 (0.66-1.25) mg/dL Estimated GFR > 60 (>60) mL/min BUN/Creatinine Ratio 16.5 (6-22) Glucose 106 (80-110) mg/dL Calcium 9.4 (8.4-10.2) mg/dL Total Bilirubin 0.7 (0.2-1.3) mg/dL AST 25 (17-59) IU/L ALT 23 (<50) IU/L Alkaline Phosphatase 108 (38-126) U/L Total Creatine Kinase 78 66 (55-170) U/L Troponin I < 0.012 < 0.012 (0.01-0.034) ng/mL Total Protein 7.1 (6.3-8.2) g/dL Albumin 4.2 (3.5-5.0) g/dL Globulin 2.9 (1.7-4.1) g/dL Albumin/Globulin Ratio 1.4 (1.0-2.8) Lipase 87 (23-300) U/L Imaging Data Chest x-ray: Radiologist's Impression: No acute cardiopulmonary disease ECG Data Attestation: I personally reviewed and interpreted this ECG as follows: Interpretation: Sinus bradycardia Ventricular rate is 65 with occasional PVCs Normal axis No ST T wave changes MDM Narrative Medical decision making narrative: Patient does have a history of coronary artery disease however his discomfort is more in the epigastric region. His chest x-ray is unremarkable. Nonischemic EKG with PVCs. Troponins are negative x2. He does have reproducible discomfort to palpation. His LFTs are unremarkable. He was a negative Freire's sign. Considered gallbladder pathology but I feel is unlikely based on his presentation. He was given a GI cocktail and afterwards he states this did improve his symptoms quite a bit. We discussed that this does not necessarily rule out the possibility of coronary artery disease or rule in the possibility of reflux disease but it does support that diagnosis. Plan will be to discharge patient home. Will put him on Carafate for the next couple days. He was given return precautions and follow-up instructions. He expressed understanding and agreement with plan. Discharge Plan Departure Patient Disposition: Home Clinical Impression: Epigastric abdominal pain Activity Restrictions/Additional Instructions: Recommend that you continue to take all of your medications as directed. A prescription for a medicine called Carafate was sent to [facility] per your request. This medication can be helpful with treating GI related issues such as reflux disease or stomach ulcers. Recommend you take it for the next 48 hours as directed and then as needed after that. Contact your primary doctor for a follow-up. Return to the emergency department for new or worsening symptoms. Prescriptions: New sucralfate [Carafate] 100 mg/mL suspension 10 ml PO QACHS Qty: 414 0RF No Action multivitamin Tablet 1 tab PO DAILY Qty: 0 tamsulosin [Flomax] 0.4 mg capsule 0.4 mg PO HS Qty: 90 3RF finasteride 5 mg tablet See Rx Instructions .ROUTE .COMPLEX Qty: 90 3RF Dose Instruction: TAKE ONE TABLET BY MOUTH ONE TIME DAILY Rx Instructions: TAKE ONE TABLET BY MOUTH ONE TIME DAILY atorvastatin 40 mg tablet See Rx Instructions .ROUTE .COMPLEX Qty: 90 2RF Dose Instruction: TAKE ONE TABLET BY MOUTH ONE TIME DAILY Rx Instructions: TAKE ONE TABLET BY MOUTH ONE TIME DAILY trazodone 50 mg tablet 50 mg PO ONCE PM Qty: 90 0RF fluoxetine 20 mg capsule 20 mg PO DAILY Qty: 90 0RF metoprolol tartrate 25 mg tablet 12.5 mg PO DAILY rosuvastatin 40 mg tablet 40 mg PO DAILY aspirin [Adult Low Dose Aspirin] 81 mg tablet,delayed release (DR/EC) 81 mg PO DAILY Qty: 100 5RF Referrals: Ilir Salgado MD [Primary Care Provider] - Stand Alone Forms: Patient Portal/API
[2024-06-08] MEDS: MAG HYDROX/ALUMINUM/SIMETH SUS 20 ML, LIDOCAINE VISCOUS 2% 15 ML PO (03:07)
[2024-06-08] MEDS: PANTOPRAZOLE 40 MG VIAL IV (03:07)
[2024-06-08 04:40] LABS: Creatine Kinase 66 U/L (55-170)
[2024-06-08 04:52] LABS: Troponin I < 0.012 ng/mL (0.01-0.034)
== END 2024-06-08 05:41 | disposition home or self-care (01) ==
PROVIDERS: Emergency Provider Emergency Medicine; PCP Family Medicine
DX: R10.13 Epigastric pain (principal); R00.1 Bradycardia, unspecified; I25.2 Old myocardial infarction
CPT/HCPCS: 36415; 71045; 80053; 82550; 83690; 84484; 85025; 93005; 93010; 96374; 99284; J2470

== ENCOUNTER 2025-04-12 14:53 | Emergency (ER) | payer OTHER, SELFPAY ==
[2025-04-12] VITALS (33 sets, daily range): BP systolic 115–151; BP diastolic 57–77; PULSE 67–77; RESP 9–26; TEMP 36.7; O2SAT 89–99; BMI 32.5
--- NOTE | 2025-04-12 15:00 | DI.RAD.S_ITS ---
PROCEDURE: XR CHEST 1V INDICATIONS: Chest Pain TECHNIQUE: One view of the chest was acquired. COMPARISON: [facility], , XR CHEST 1V, 06/08/2024, 2:10. [facility], , CHEST 1 VIEW, 04/29/2015, 13:55. FINDINGS AND IMPRESSION: Moderate left pneumothorax and multiple left mid to lower rib fractures are present. Called to Dr. Rene No significant fluid component on radiograph Low lung volumes. No dense consolidation on this limited single view study. Heart size is at the upper limit of normal. Sternotomy wires are seen. Dictated by: Esvin Merritt M.D. on 04/12/2025 at 14:22 Approved by: Esvin Merritt M.D. on 04/12/2025 at 14:25
--- NOTE | 2025-04-12 15:03 | DI.CT.S_ITS ---
PROCEDURE: CT CERVICAL SPINE WO CON INDICATIONS: Fall from 5-6 feet TECHNIQUE: Noncontrast 3 mm thick sections acquired from the skull base to the T4 level. Sagittal and coronal reformats were then constructed. For radiation dose reduction, the following was used: automated exposure control, adjustment of mA and/or kV according to patient size. COMPARISON: None. FINDINGS: Image quality: Diagnostic Bones: Hyperextension injury with separation of the bridging syndesmophytes at C4-C5 and fracture lucency extending through the C5 vertebral body, exiting the PLL. There is trace widening of the facet joints at this level. This fracture involves the right transverse foramen Moderate to severe spondylosis at the other levels. No acute vertebral body height loss. Soft tissues: No pathologic prevertebral swelling. Left pneumothorax partially seen IMPRESSION: Hyperextension fractures described above through C4-C5, likely unstable. Discussed with Dr. Rene. Consider CT angiogram of the neck to further evaluate the vertebral arteries. Partially seen left pneumothorax. Dictated by: Esvin Merritt M.D. on 04/12/2025 at 14:40 Approved by: Esvin Merritt M.D. on 04/12/2025 at 14:45
--- NOTE | 2025-04-12 15:03 | DI.CT.S_ITS ---
PROCEDURE: CT TRAUMA CHEST ABDOMEN PELVIS INDICATIONS: trauma TECHNIQUE: MDCT axial chest images were obtained with IV contrast in the arterial phase. Maximum intensity projections and multiplanar reformats were obtained. MDCT axial abdomen and pelvis images were obtained with IV contrast in the portal venous phase. Multiplanar reformats were obtained. Optional delayed phase scanning may also be obtained Advanced techniques were used to lower patient radiation exposure. COMPARISON: Not available FINDINGS Image Quality: Diagnostic. Chest: Lungs and pleura: Moderate left pneumothorax. Bibasal atelectasis. No hemothorax component identified. No discrete pulmonary laceration Vascular: No dissection or pseudoaneurysm. No incidental central pulmonary embolism. No hemopericardium. Coronary calcifications. Mediastinum: No mediastinum hematoma. No suspicious mass or lymph nodes. No actionable thyroid nodules. Chest wall: Nondisplaced left 5th rib fracture. Segmental left 6 rib fractures, nondisplaced segmental nondisplaced left 7th rib fractures. nondisplaced left 8th rib fracture. Nondisplaced left 9th rib fracture. Nondisplaced left 10th rib fracture. Nondisplaced left 11th rib fracture. Sternotomy wires. Bilateral degenerative changes of the shoulders and postoperative widening of the right AC interval. Thoracic spine: Bridging syndesmophytes throughout the thoracic spine, with a mildly displaced hyperextension fracture at T9-T10. this likely exits at the PLL ABDOMEN and PELVIS: Liver: Subcentimeter lesion in the left lobe, too small to characterize, probably a cyst Gallbladder: Cholelithiasis Biliary system: Non-dilated. Pancreas: Unremarkable. Spleen: No laceration or capsular hematoma. Adrenals: No suspicious nodules. Kidneys: No contrast extravasation or hydronephrosis. No solid masses. Vessels and lymph nodes: No pathology lymph nodes by size criteria. No dissection or aneurysm. No retroperitoneal hematoma. Bowel and peritoneum: No suspicious region of mesenteric hemorrhage or hemoperitoneum. No bowel obstruction. Colonic diverticula. Pelvis: Unremarkable bladder. Small fat containing right inguinal hernia Prostatomegaly and heterogeneous enhancement, nonspecific. Pelvic ring and femurs: No pelvic ring disruption. No hip fractures. Lumbar spine: No acute fracture or traumatic subluxation. Abdominal wall: No drainable fluid collection or hematoma. IMPRESSION: Bridging syndesmophytes and osteophytes throughout the cervical thoracic spine. Another hyperextension injury is seen at T9-T10. This is mildly displaced. Multiple left-sided rib fractures. Moderate left pneumothorax. Cholelithiasis. Other findings above. Dictated by: Esvin Merritt M.D. on 04/12/2025 at 15:00 Approved by: Esvin Merritt M.D. on 04/12/2025 at 15:10
--- NOTE | 2025-04-12 15:03 | EKG_ITS ---
[place] [place] [id number] [place] [address] Test Date: 2025-04-12 Pat Name: Amandeep Hdz Department: Room: Gender: Male Automatic [employer] Operator: : 1950 Requested By: Order Number: [id number] Reading MD: Dragan Acosta MD Measurements Intervals [place] Rate: 75 P: 29 OK: 164 QRS: 1 QRSD: 94 T: -24 QT: 386 QTc: 431 Interpretive Statements Sinus rhythm with occasional and consecutive premature ventricular complexes Nonspecific ST abnormality Electronically Signed On 04-13-2025 7:43:10 PDT by Dragan Acosta MD
--- NOTE | 2025-04-12 15:04 | DI.CT.S_ITS ---
PROCEDURE: CT HEAD/BRAIN WO CON INDICATIONS: Fall from 5-6 feet TECHNIQUE: Noncontrast 4.5 mm thick angled axial sections acquired from the foramen magnum to the vertex, with coronal and sagittal reformats. For radiation dose reduction, the following was used: automated exposure control, adjustment of mA and/or kV according to patient size. COMPARISON: None. FINDINGS: Image quality: Diagnostic CSF spaces: Basal cisterns are patent. Lateral ventricles are symmetric. Volume: Vascular calcifications. Periventricular white matter disease is commonly seen with chronic microangiopathy. Volume loss is present. These findings are [id number] Brain: No acute hemorrhage. No gross loss of cox-white differentiation. Craniofacial structures: Fused spine and cervical spine fracture is separately dictated on C-spine CT. IMPRESSION: No acute intracranial hemorrhage. Fused spine and hyperextension injury separately dictated on cervical spine CT. Dictated by: Esvin Merritt M.D. on 04/12/2025 at 14:47 Approved by: Esvin Merritt M.D. on 04/12/2025 at 14:48
[2025-04-12 15:08] LABS: Add Manual Diff / Slide Review NO; Hematocrit 39.9 % (41-53); Hemoglobin 13.4 g/dL (13.5-17.5); Lymphocytes Absolute Auto 1600 /uL (1100-4500); Mean Corpuscular HGB Conc 33.6 % (30-36); Mean Corpuscular Hemoglobin 27.6 PG (26-34); Mean Corpuscular Volume 82.2 fL (80-100); Platelet Count 145 X10^3/uL (150-400)
[2025-04-12 15:09] LABS: INR 1.1 (0.9-1.3); Prothrombin Time 12.0 SECONDS (9.4-12.5)
[2025-04-12 15:12] LABS: PTT Partial Thromboplastin Tim 32 SECONDS (25.1-36.5)
[2025-04-12 15:15] LABS: Alanine Aminotransferase 23 IU/L (<50); Albumin 3.9 g/dL (3.5-5.0); Albumin Globulin Ratio 1.6 (1.0-2.8); Alkaline Phosphatase 86 U/L (38-126); Blood Urea Nitrogen 14 mg/dL (9-20); Calcium 9.1 mg/dL (8.4-10.2); Carbon Dioxide 23 mmol/L (22-32); Chloride 107 mmol/L (98-107); Creatine Kinase 139 U/L (55-170); Estimated Glomerular Filt Rate > 60 mL/min (>60); Globulin 2.5 g/dL (1.7-4.1); Glucose 119 mg/dL (70-99); HEMOLYSIS 16 (0-50); Lipase 108 U/L (23-300); Magnesium 1.8 mg/dL (1.6-2.3); Potassium 3.8 mmol/L (3.4-5.1); Sodium 136 mmol/L (137-145); Total Protein 6.4 g/dL (6.3-8.2)
--- NOTE | 2025-04-12 15:18 | ED.BACK ---
HPI - Back Pain/Injury General Chief Complaint: Trauma Stated Complaint: Fall from Ladder Time Seen by Provider: 04/12/25 15:15 Source: patient and EMS History of Present Illness HPI Narrative: 75 years old male with history of cardiac bypass surgery on aspirin came in today by an ambulance after he fell off of a ladder about 5-6 feet. He fell back on his back on the concrete and complaint of back pain between the shoulder blade, mid back pain and left rib pain, neck pain. He deny head injury, loss of consciousness or taking any other blood thinners. He denies any arm pain, leg pain, abdominal pain, nausea vomiting. Related Data Home Medications ?Medication ?Instructions ?Recorded ?Confirmed multivitamin 1 tab PO DAILY ##0 07/25/11 03/31/25 metoprolol tartrate 25 mg tablet 12.5 mg PO DAILY 08/23/22 03/31/25 rosuvastatin 40 mg tablet 40 mg PO DAILY 03/11/24 03/31/25 Previous Rx's ?Medication ?Instructions ?Recorded aspirin 81 mg tablet,delayed 81 mg PO DAILY #100 tabs 01/01/19 release (Adult Low Dose Aspirin) tamsulosin 0.4 mg capsule (Flomax) 0.4 mg PO HS #90 caps 03/16/25 trazodone 50 mg tablet 50 mg PO ONCE PM #90 tabs 03/16/25 finasteride 5 mg tablet See Rx Instructions .Route 03/23/25 .COMPLEX #90 tabs fluoxetine 20 mg capsule 20 mg PO DAILY #90 caps 03/23/25 Allergies Allergy/AdvReac Type Severity Reaction Status Date / Time morphine AdvReac Mild INCREASED Verified 03/31/25 09:24 BP, TACHYCARDIA Review of Systems Review of Systems Narrative: Positive for neck pain, upper back pain, midback pain, left rib pain. Negative for nausea vomiting head injury, loss of consciousness, numbness weakness on his leg, extremity pain, abdominal pain. Patient History Medical History Actinic keratoses Sleep apnea Thrombocythemia Postural dizziness Nausea Segmental and somatic dysfunction of abdomen and other regions Segmental and somatic dysfunction of rib cage Thoracic region somatic dysfunction Cervical somatic dysfunction Cranial somatic dysfunction Stiff neck Sacral region somatic dysfunction Pelvic somatic dysfunction Lumbar region somatic dysfunction Acute right-sided low back pain with left-sided sciatica Chronic right-sided low back pain without sciatica Paresthesia and pain of both upper extremities Angina pectoris, unstable Non-ST elevation PA (NSTEMI) Hematuria (07/19/20) Folliculitis Epididymitis, right Pain of foot (11/02/15) Hemorrhoids Myalgia Surgical History Hx of CABG Family History Father Hypertension Heart disease Family/Other Alcohol abuse Substance abuse Social History household members: spouse Smoking Status: Never smoker alcohol intake frequency: a few times a week Exam Initial Vital Signs Initial Vital Signs: Vital Signs Temperature 98.1 F 04/12/25 14:56 Pulse Rate 69 04/12/25 14:56 Respiratory Rate 20 04/12/25 14:56 Blood Pressure 131/77 04/12/25 14:56 Pulse Oximetry 94 04/12/25 14:56 Oxygen Delivery Method Room Air 04/12/25 14:56 Const General: cooperative, well developed and anxious Eyes EOM: EOM intact bilaterally Chest Other: Tenderness to palpation left lower rib with ecchymosis. Resp Other: Decreased lung sounds in the left side. Clear lung on the right side. Cardio Other: Normal S1-S2 without murmur. Normal rhythm and rate. GI Other: No distention or tenderness. No guarding or rebound tenderness. Back/Spine/Pelvis Other: Tenderness on palpation left rib, left mid thigh. Tenderness on palpation midline lower thoracic spine, lumbar spine and C-spine without step-off. Skin Other: Abrasion left upper back and left mid back. Neuro Other: GCS 15. Moving all extremities. Alert oriented x4. Normal sensation on both arms and legs. Course Course Course Narrative: 3:24 p.m. Discussed with our surgeon on-call for pneumothorax. Radiology call about moderate pneumothorax on the left side. 3:30 p.m. radiology call C5 fracture, unstable. 4:20 p.m. discussed the case with ED physician at [facility] and the patient was accepted to the ED. Orders Ordered: ED Orders 04/12/25 14:45 Complete Blood Count AUTO DIFF Stat Comprehensive Metabolic Panel Stat Lipase Stat Magnesium Stat NT-proBNP (BNP-Adult 18+) Stat PTT Partial Thromboplastin Rene Stat Prothrombin Time INR Stat Troponin & CK Cardiac Panel Stat 04/12/25 15:00 XR chest 1V Stat Type and Screen Stat EKG-12 Lead Stat 04/12/25 15:03 CT Trauma Chest Abdomen Pelvis Stat CT cervical spine wo con Stat 04/12/25 15:04 CT head/brain wo con Stat Discontinued Medications Aspirin (Aspirin 81 Mg Chew Tab) 324 mg PO NOW ONE Stop: 04/12/25 15:00 Last Admin: 04/12/25 15:07 Dose: Not Given Documented By: RB Fentanyl (Fentanyl 100 Mcg/2 Ml Inj) 100 mcg IV NOW ONE Stop: 04/12/25 16:33 Last Admin: 04/12/25 16:39 Dose: 100 mcg Hydromorphone HCl (Hydromorphone Hcl 0.5 Mg/0.5 Ml Syringe) 0.5 mg IV NOW ONE Stop: 04/12/25 15:30 Last Admin: 04/12/25 15:36 Dose: 0.5 mg Lidocaine HCl (Lidocaine 2% (Glydo) 6 Ml Gel) 6 ml TOP NOW ONE Stop: 04/12/25 15:44 Last Admin: 04/12/25 15:45 Dose: 6 ml Lidocaine/Epinephrine (Lidocaine 1% W/Epi 10ml) 30 ml INJ INTRA-OP ONE Stop: 04/12/25 16:39 Ondansetron HCl (Ondansetron 4 Mg/2 Ml Inj) 4 mg IV NOW ONE Stop: 04/12/25 15:31 Last Admin: 04/12/25 15:37 Dose: 4 mg Vital Signs Vital signs: Vital Signs - 8 hr 04/12/25 14:56 04/12/25 14:59 04/12/25 15:00 Temperature 98.1 F Pulse Rate 69 69 67 Respiratory Rate 20 20 14 Blood Pressure 131/77 Pulse Oximetry 94 92 93 Oxygen Delivery Method Room Air 04/12/25 15:00 04/12/25 15:10 04/12/25 15:10 Temperature Pulse Rate 68 Respiratory Rate 19 Blood Pressure 134/71 124/69 Pulse Oximetry 92 Oxygen Delivery Method 04/12/25 15:16 04/12/25 15:16 04/12/25 15:20 Temperature Pulse Rate 70 69 Respiratory Rate 14 21 Blood Pressure 125/74 Pulse Oximetry 92 89 L Oxygen Delivery Method 04/12/25 15:20 04/12/25 15:25 04/12/25 15:25 Temperature Pulse Rate 67 Respiratory Rate 12 Blood Pressure 123/57 L 115/64 Pulse Oximetry 92 Oxygen Delivery Method 04/12/25 15:30 04/12/25 15:30 04/12/25 15:35 Temperature Pulse Rate 68 70 Respiratory Rate 20 18 Blood Pressure 145/65 H Pulse Oximetry 94 92 Oxygen Delivery Method 04/12/25 15:35 04/12/25 15:40 04/12/25 15:40 Temperature Pulse Rate 70 Respiratory Rate 12 Blood Pressure 121/68 124/77 Pulse Oximetry 93 Oxygen Delivery Method 04/12/25 15:45 04/12/25 15:45 04/12/25 15:50 Temperature Pulse Rate 70 68 Respiratory Rate 12 18 Blood Pressure 131/73 Pulse Oximetry 92 94 Oxygen Delivery Method 04/12/25 15:50 04/12/25 15:56 04/12/25 15:56 Temperature Pulse Rate 73 Respiratory Rate 18 Blood Pressure 151/69 H 125/72 Pulse Oximetry 94 Oxygen Delivery Method 04/12/25 16:00 04/12/25 16:00 04/12/25 16:05 Temperature Pulse Rate 70 Respiratory Rate 16 Blood Pressure 124/75 118/74 Pulse Oximetry 95 Oxygen Delivery Method 04/12/25 16:05 04/12/25 16:10 04/12/25 16:10 Temperature Pulse Rate 71 70 Respiratory Rate 14 17 Blood Pressure 117/71 Pulse Oximetry 95 96 Oxygen Delivery Method 04/12/25 16:15 04/12/25 16:15 Temperature Pulse Rate 72 Respiratory Rate 12 Blood Pressure 144/67 H Pulse Oximetry 95 Oxygen Delivery Method MDM - Back Pain/Injury Lab Data 04/12/25 14:45 04/12/25 14:45 Labs: Lab Results 04/12/25 04/12/25 Range/Units 14:45 15:00 WBC 4.6 (4.5-11.0) X10^3/uL RBC 4.85 (4.5-5.9) X10^6/uL Hgb 13.4 L (13.5-17.5) g/dL Hct 39.9 L (41-53) % MCV 82.2 (80-100) fL MCH 27.6 (26-34) PG MCHC 33.6 (30-36) % RDW 14.6 (11.6-14.8) % Plt Count 145 L (150-400) X10^3/uL Neut % (Auto) 54.1 (50-75) % Lymph % (Auto) 35.6 (25-40) % Laurens % (Auto) 6.3 (3-14) % Eos % (Auto) 3.8 (2-4) % Baso % (Auto) 0.2 (0-2) % Neut # (Auto) 2500 (7093-9473) /uL Lymph # (Auto) 1600 (3602-3226) /uL Laurens # (Auto) 300 (0-900) /uL Eos # (Auto) 200 (0-450) /uL Baso # (Auto) 0 (0-100) /uL PT 12.0 (9.4-12.5) SECONDS INR 1.1 (0.9-1.3) APTT 32 (25.1-36.5) SECONDS Sodium 136 L (137-145) mmol/L Potassium 3.8 (3.4-5.1) mmol/L Chloride 107 (98-107) mmol/L Carbon Dioxide 23 (22-32) mmol/L BUN 14 (9-20) mg/dL Creatinine 0.75 (0.66-1.25) mg/dL Estimated GFR > 60 (>60) mL/min BUN/Creatinine Ratio 18.7 (6-22) Glucose 119 H (70-99) mg/dL Calcium 9.1 (8.4-10.2) mg/dL Magnesium 1.8 (1.6-2.3) mg/dL Total Bilirubin 0.7 (0.2-1.3) mg/dL AST 30 (17-59) IU/L ALT 23 (<50) IU/L Alkaline Phosphatase 86 (38-126) U/L Total Creatine Kinase 139 (55-170) U/L Troponin I < 0.012 (0.01-0.034) ng/mL NT-Pro-B Natriuret Pep 105 (<450) pg/mL Total Protein 6.4 (6.3-8.2) g/dL Albumin 3.9 (3.5-5.0) g/dL Globulin 2.5 (1.7-4.1) g/dL Albumin/Globulin Ratio 1.6 (1.0-2.8) Lipase 108 (23-300) U/L Blood Type O Negative Antibody Screen Negative ECG Data Interpretation: EKG shows a normal sinus rhythm at rate 75 beats per minute without ischemic ST-T changes with PVC. MDM Narrative Medical decision making narrative: 75 years old male with history of coronary artery disease status post bypass surgery on aspirin and came in today after he fell about 5-6 feet from a ladder complaint of neck pain, upper back pain, rib pain, mid back pain. Fast ultrasound exam show no intraperitoneal bleeding but no lung sliding on the left lung. Decreased breath sounds in left lung. Tenderness on palpation midline C-spine, lower thoracic spine. His abdominal exam was benign. She had x-rays show moderate left pneumothorax. The CT scan head showed no acute finding. The CT scan chest abdomen and pelvis show multiple rib fracture on the left, T9-10 fracture, unstable C4-C5 fracture. He was given Dilaudid, fentanyl, Zofran in the ED. We will continue C-spine protection. He moves both arms and legs and alert oriented x4 in the ED. I discussed the case with [facility] ED physician and the patient was accepted to the hospital by air lift. His CBC showed hemoglobin 13.4 out of a normal CBC. His PT INR PTT was normal. His CMP shows sodium 136 otherwise normal CMP. His troponin was negative. His BNP was 105. His lipase was normal. Critical Care Time Critical Care Time Critical Care Time: Yes Total Critical Care Time: 35 Attestation: I spent 35 minutes critical care time for this patient. Discharge Plan Departure Patient Disposition: [facility] Clinical Impression: Pneumothorax on left, Fall from ladder, Cervical spine fracture, Thoracic spine fracture, Multiple rib fractures Prescriptions: No Action multivitamin Tablet 1 tab PO DAILY Qty: 0 trazodone 50 mg tablet 50 mg PO ONCE PM Qty: 90 0RF tamsulosin [Flomax] 0.4 mg capsule 0.4 mg PO HS Qty: 90 0RF finasteride 5 mg tablet See Rx Instructions .ROUTE .COMPLEX Qty: 90 0RF Dose Instruction: TAKE ONE TABLET BY MOUTH ONE TIME DAILY Rx Instructions: TAKE ONE TABLET BY MOUTH ONE TIME DAILY fluoxetine 20 mg capsule 20 mg PO DAILY Qty: 90 0RF metoprolol tartrate 25 mg tablet 12.5 mg PO DAILY rosuvastatin 40 mg tablet 40 mg PO DAILY aspirin [Adult Low Dose Aspirin] 81 mg tablet,delayed release (DR/EC) 81 mg PO DAILY Qty: 100 5RF Referrals: Ilir Salgado MD [Primary Care Provider, [facility]]
[2025-04-12 15:26] LABS: NT-proBNP (BNP-Adult 18+) 105 pg/mL (<450); Troponin I < 0.012 ng/mL (0.01-0.034)
[2025-04-12] MEDS: ONDANSETRON 4 MG/2 ML INJ IV (15:37)
[2025-04-12] MEDS: LIDOCAINE 2% (GLYDO) 6 ML GEL TOP (15:45)
--- NOTE | 2025-04-12 16:00 | PC.NURSE ---
pt arrived in c-spine. Immobilization maintained during primary assessment. pt log rolled with MD for spinal and posterior exam. Pt head free from pain on palpation. pupils PERRLA. Teeth in tact without pain in and around jaw. Neck painful on palpation. C-collar in place. Pt complains on trouble swallowing but is move air and managing his secretions well. Suction at bedside. Patient bony prominences palpated for pain. fingers arms legs and toes have normal pain sensation and movement. Log roll reveals abrasion on left scapula area and left flank area. also left forearm abrasion. Jha cath placed and perineum was observed and free from bleeding and bruising. Pt is neuro in tact. His lung sounds are slightly diminished on the left side but clear. pt complains of left anterior rib pain. small yellow bruise noticed.
[2025-04-12] MEDS: fentaNYL 100 MCG/2 ML INJ IV (16:39)
--- NOTE | 2025-04-12 16:40 | PC.NURSE ---
Surgeon at bedside to place chest tube, 100mcg of fentanyl given for pain control.
[2025-04-12] MEDS: LIDOCAINE 1% W/EPI 10ML 30 ML INJ (16:48)
--- NOTE | 2025-04-12 16:48 | DI.RAD.S_ITS ---
PROCEDURE: XR CHEST 1V INDICATIONS: post chest tube placement TECHNIQUE: One view of the chest was acquired. COMPARISON: [facility], ALFA, XR CHEST 1V, 04/12/2025, 15:04. [facility], CR, XR CHEST 1V, 06/08/2024, 2:10. FINDINGS AND IMPRESSION: Left chest tube tip projects over the left medial lung. No significant remaining pneumothorax. Rib fractures, better assessed on CT. Sternotomy wires. Heart size is at the upper limit of normal. Dictated by: Esvin Merritt M.D. on 04/12/2025 at 16:14 Approved by: Esvin Merritt M.D. on 04/12/2025 at 16:15
--- NOTE | 2025-04-12 16:59 | PC.NURSE ---
Chest tube placed and connected to suction, pt endorses increase ability to breath.
--- NOTE | 2025-04-12 17:01 | PM.OP.1 ---
Operative Date/Time/Diagnoses Date of procedure: 04/12/25 Time of procedure: 17:01 Pre-op diagnosis: LT traumatic pneumothorax Post-op diagnosis: same Procedure & Clinicians Procedure: LT thoracostomy tube insertion Same procedure(s) as scheduled: Yes Indications: 75yo M, trauma, fall from ladder, major spine trauma, accepted transfer to [facility], needs LT chest tube for ptx prior to helicopter transport. Surgeon: Erich Ugarte Click Yes if Unassisted: Yes Anesthesia Type: Local Operative Notes Findings: Small amount of blood return Closure Type: not applicable Specimen(s): none sent Prosthetic devices, grafts, tissues, transplants, or devices: 28Fr Chest tube Applied: other (28Fr Chest tube) Estimated Blood Loss (mL): 5 Blood products transfused: none Procedure in detail: Due to the emergent nature of this procedure, verbal consent from the patient was obtained. The left chest was prepped and draped in the usual sterile manner. The correct side was confirmed on imaging. The left chest was prepped and draped in the usual sterile manner. I injected 1% lidocaine with epinephrine total of 20 cc into the skin and subcutaneous tissues. Skin incision made with #15 blade. I injected additional local superior to a palpable rib edge taking care to avoid the neurovascular bundle. I then bluntly opened the pleura with a Jeane clamp and then inserted a 28 Irish chest tube with the Jeane clamped on the tip. Entry into the pleural cavity was met with a yates of air. The chest tube was secured to the skin using 2-0 nylon x2. The tube was placed to 20 cm of water suction. Chest tube dressing applied with xeroform gauze and 4X4's and chest tube tape. Tape mesentery used to secure the tube. Tape also applied to secure the connector. There was a small amount of blood in the tube, less than 10 cc. Postprocedure x-ray demonstrated successful re-expansion of the left lung. The tube followed the fissure and was not in an apical position. Due to his multi trauma and significant spine injuries and the need for urgent transport to [facility] I did not take the time to reposition the tube. There was no air leak noted in the chamber. The patient's O2 saturations increased to 95% soon after the tube was inserted and placed on suction. The patient tolerated the procedure well. Complications: none Post-operative Condition: stable Disposition: other (ED) Plan for aftercare: Emergent transport to [facility]
[2025-04-12] MEDS: HYDROMORPHONE 1 MG INJ IV (17:12)
== END 2025-04-12 17:50 | disposition short-term general hospital (02) ==
PROVIDERS: Emergency Provider Emergency Medicine; PCP Family Medicine
DX: J93.9 Pneumothorax, unspecified (principal); S12.300A Unspecified displaced fracture of fourth cervical vertebra, initial encounter for closed fracture; S12.400A Unspecified displaced fracture of fifth cervical vertebra, initial encounter for closed fracture; S22.079A Unspecified fracture of T9-T10 vertebra, initial encounter for closed fracture; S22.42XA Multiple fractures of ribs, left side, initial encounter for closed fracture; W11.XXXA Fall on and from ladder, initial encounter
CPT/HCPCS: 32551; 70450; 71045; 71275; 72125; 74177; 80053; 82550; 83690; 83735; 83880; 84484; 85025; 85610; 85730; 86850; 86900; 86901; 93005; 93010; 96374; 96375; 96376; 99284; 99291; G0390; J1171; J2405; J3010; Q9967

== ENCOUNTER → 2025-04-28 09:34 | Outpatient (CLI) | payer OTHER, SELFPAY ==
[2025-04-28 10:38] LABS: Add Manual Diff / Slide Review NO; Hematocrit 31.6 % (41-53); Hemoglobin 10.8 g/dL (13.5-17.5); Lymphocytes Absolute Auto 1000 /uL (1100-4500); Mean Corpuscular HGB Conc 34.1 % (30-36); Mean Corpuscular Hemoglobin 28.6 PG (26-34); Mean Corpuscular Volume 83.6 fL (80-100); Platelet Count 266 X10^3/uL (150-400)
[2025-04-28 10:45] LABS: Alanine Aminotransferase 32 IU/L (<50); Albumin 3.7 g/dL (3.5-5.0); Albumin Globulin Ratio 1.6 (1.0-2.8); Alkaline Phosphatase 217 U/L (38-126); Blood Urea Nitrogen 14 mg/dL (9-20); Calcium 9.2 mg/dL (8.4-10.2); Carbon Dioxide 25 mmol/L (22-32); Chloride 105 mmol/L (98-107); Cholesterol 117 mg/dL (140-199); Estimated Glomerular Filt Rate > 60 mL/min (>60); Globulin 2.3 g/dL (1.7-4.1); Glucose 97 mg/dL (70-99); HDL Cholesterol 39 mg/dL (40-60); HEMOLYSIS < 15 (0-50); Potassium 4.5 mmol/L (3.4-5.1); Sodium 137 mmol/L (137-145); Total Protein 6.0 g/dL (6.3-8.2); Triglycerides 158 mg/dL (35-150)
[2025-04-28 11:17] LABS: TSH w/ Reflex to FT4 1.71 uIU/mL (0.47-4.68)
== END ==
PROVIDERS: PCP Family Medicine; Referring Provider Family Medicine; Visit Provider Family Medicine
DX: Z00.00 Encounter for general adult medical examination without abnormal findings (principal); I10 Essential (primary) hypertension; I25.10 Atherosclerotic heart disease of native coronary artery without angina pectoris; E78.5 Hyperlipidemia, unspecified
CPT/HCPCS: 36415; 80053; 80061; 82043; 82172; 82570; 84443; 85025

== ENCOUNTER → 2025-04-30 12:27 | Outpatient (CLI) | payer OTHER, SELFPAY ==
--- NOTE | 2025-04-30 12:29 | DI.RAD.S_ITS ---
PROCEDURE: XR THORACIC SPINE 3V INDICATIONS: thoracic spine fracture TECHNIQUE: 3 views of the thoracic spine were acquired. COMPARISON: , CT, CT TRAUMA CHEST ABDOMEN PELVIS, 04/12/2025, 15:06. FINDINGS: Bones: Status post interval thoracic spinal fusion of of T8 through T11. Post surgical alignment appears anatomic. No evidence for acute hardware complication. No evidence for abnormal widening at the T9-10 interspace. No suspicious bony lesions. 12 pairs of ribs are noted, and appear intact where visualized. Partially imaged cervical spinal fusion better seen on dedicated cervical spine radiographic series from same day. Please see separate report for details. Soft tissues: No paravertebral stripe thickening. Multiple median sternotomy wires. IMPRESSION: Status post interval posterior thoracic spinal fusion of T8 through T11 for known T9-10 fracture. No evidence for hardware complication. Postsurgical alignment is anatomic. Dictated by: Zhou Carlisle M.D. on 04/30/2025 at 16:23 Approved by: Zhou Carlisle M.D. on 04/30/2025 at 16:28
--- NOTE | 2025-04-30 12:29 | DI.RAD.S_ITS ---
PROCEDURE: XR CERVICAL SPINE 2V OR 3V INDICATIONS: neck fracture TECHNIQUE: 4 view(s) of the cervical spine were acquired. COMPARISON: [facility], CT, CT CERVICAL SPINE WO CON, 04/12/2025, 15:06. [facility], CR, XR CERVICAL SPINE 2V OR 3V, 05/11/2021, 14:10. FINDINGS: Bones: Status post interval posterior cervical spinal fusion from C3 through C7. Previously seen fracture of C5 is better visualized on comparison CT. No evidence for hardware complication. Postsurgical alignment appears anatomic. Previously seen prevertebral soft tissue edema has decreased. Soft tissues: No prevertebral soft tissue swelling. IMPRESSION: Status post interval posterior spinal fusion of C3 through C7 without evidence for hardware complication. Normal postsurgical alignment. Known C5 fracture not well visualized. Dictated by: Zhou Carlisle M.D. on 04/30/2025 at 16:20 Approved by: Zhou Carlisle M.D. on 04/30/2025 at 16:23
== END ==
PROVIDERS: PCP Family Medicine; Referring Provider Family Medicine; Visit Provider Family Medicine
DX: S12.400A Unspecified displaced fracture of fifth cervical vertebra, initial encounter for closed fracture (principal); S22.079A Unspecified fracture of T9-T10 vertebra, initial encounter for closed fracture; Z98.1 Arthrodesis status; X58.XXXA Exposure to other specified factors, initial encounter
CPT/HCPCS: 72040; 72072

== ENCOUNTER → 2025-05-07 09:17 | Outpatient (CLI) | payer OTHER, SELFPAY ==
[2025-05-07 10:14] LABS: HEMOLYSIS < 15 (0-50); Iron 56 ug/dL (49-181)
[2025-05-07 10:21] LABS: Blood Urea Nitrogen 12 mg/dL (9-20); Calcium 9.4 mg/dL (8.4-10.2); Carbon Dioxide 24 mmol/L (22-32); Chloride 106 mmol/L (98-107); Estimated Glomerular Filt Rate > 60 mL/min (>60); Glucose 101 mg/dL (70-99); HEMOLYSIS < 15 (0-50); Potassium 4.0 mmol/L (3.4-5.1); Sodium 137 mmol/L (137-145)
[2025-05-07 10:35] LABS: Percent Iron Saturation 18 % (20-50); Total Iron Binding Capacity 311 ug/dL (261-462); Transferrin 248 mg/dL (206-381)
[2025-05-07 10:57] LABS: Ferritin 67 ng/mL (18-464)
[2025-05-07 11:11] LABS: Vitamin B12 389 pg/mL (239-931)
== END ==
PROVIDERS: PCP Family Medicine; Referring Provider Internal Medicine Interventional Cardiology; Visit Provider Internal Medicine Interventional Cardiology
DX: D64.9 Anemia, unspecified (principal); I25.810 Atherosclerosis of coronary artery bypass graft(s) without angina pectoris
CPT/HCPCS: 36415; 80048; 82607; 82728; 83540; 83550

== ENCOUNTER → 2025-06-23 08:48 | Outpatient (CLI) | payer OTHER, SELFPAY ==
[2025-06-23 09:34] LABS: Add Manual Diff / Slide Review NO; Hematocrit 39.6 % (41-53); Hemoglobin 13.0 g/dL (13.5-17.5); Lymphocytes Absolute Auto 1400 /uL (1100-4500); Mean Corpuscular HGB Conc 32.9 % (30-36); Mean Corpuscular Hemoglobin 25.8 PG (26-34); Mean Corpuscular Volume 78.6 fL (80-100); Platelet Count 133 X10^3/uL (150-400)
== END ==
PROVIDERS: PCP Family Medicine; Referring Provider Family Medicine; Visit Provider Family Medicine
DX: D64.9 Anemia, unspecified (principal)
CPT/HCPCS: 36415; 85025

== ENCOUNTER → 2025-09-17 12:29 | Outpatient (CLI) | payer OTHER, SELFPAY ==
--- NOTE | 2025-09-17 12:31 | DI.RAD.S_ITS ---
PROCEDURE: XR CERVICAL SPINE 2V OR 3V INDICATIONS: Back pain TECHNIQUE: Four view(s) of the cervical spine were acquired. COMPARISON: [facility], CR, XR CERVICAL SPINE 2V OR 3V, 04/30/2025, 12:25. FINDINGS: Bones: Posterior fusion hardware from C3 through T1. Screws and rods appear intact. There is bony ankylosis anteriorly and maintenance of disc spaces. Prominent osseous hypertrophy along the right facet joints. No acute fracture visible. Median sternotomy wires. Soft tissues: No prevertebral soft tissue swelling. IMPRESSION: Intact posterior fusion hardware throughout the cervical spine. No acute fractures. Dictated by: Aditi Tom M.D. on 09/17/2025 at 18:31 Approved by: Aditi Tom M.D. on 09/17/2025 at 18:33
--- NOTE | 2025-09-17 12:31 | DI.RAD.S_ITS ---
PROCEDURE: XR THORACIC SPINE 3V INDICATIONS: Back pain TECHNIQUE: Three views of the thoracic spine were acquired. COMPARISON: [facility], , XR THORACIC SPINE 3V, 04/30/2025, 12:25. FINDINGS: Bones: Posterior fusion hardware from T8 through T11. Screws and rods appear intact. No acute fractures. Normal disc spacing. Bony ankylosis anteriorly along the vertebral bodies. Median sternotomy and CABG changes. Soft tissues: No paravertebral stripe thickening. IMPRESSION: Intact posterior lower thoracic fusion hardware. No visible osseous or hardware fracture. Dictated by: Aditi Tom M.D. on 09/17/2025 at 18:33 Approved by: Aditi Tom M.D. on 09/17/2025 at 18:35
== END ==
PROVIDERS: PCP Family Medicine; Referring Provider Family Medicine; Visit Provider Family Medicine
DX: M99.02 Segmental and somatic dysfunction of thoracic region (principal); M99.01 Segmental and somatic dysfunction of cervical region; Z98.1 Arthrodesis status
CPT/HCPCS: 72040; 72072

== ENCOUNTER → 2025-10-06 16:31 | Outpatient (CLI) | payer OTHER, SELFPAY ==
--- NOTE | 2025-10-06 16:32 | DI.RAD.S_ITS ---
PROCEDURE: XR TOE RT MIN 2V INDICATIONS: pain around medial nail TECHNIQUE: 4 views of the right great toe(s) acquired. COMPARISON: None. FINDINGS: Bones: No acute fractures or dislocations. No suspicious bony lesions. Polyarticular degenerative changes of the right foot. Moderate degenerative changes noted at the 1st metatarsophalangeal joint and interphalangeal joint. No suspicious osseous erosions. No periosteal reaction. Mild degenerative changes of the dorsal midfoot. Soft tissues: No suspicious soft tissue densities. IMPRESSION: Right foot/right 1st toe without acute osseous abnormalities. No acute abnormalities at the reported area of pain near the medial aspect of the toenail. No underlying osseous abnormalities. If there are persistent symptoms or clinical suspicion for pathology, then repeat radiographs or advanced imaging (CT or MRI) may be considered for further evaluation. Dictated by: Zhou Carlisle M.D. on 10/06/2025 at 19:25 Approved by: Zhou Carlisle M.D. on 10/06/2025 at 19:26
[2025-10-06 17:38] LABS: Uric Acid 4.8 mg/dL (3.5-8.5)
== END ==
PROVIDERS: PCP Family Medicine; Referring Provider Physician Assistant; Visit Provider Physician Assistant
DX: M79.676 Pain in unspecified toe(s) (principal); M79.674 Pain in right toe(s)
CPT/HCPCS: 36415; 73660; 84550